=== PATIENT | female | born 1980 | race Caucasian/White ===

== ENCOUNTER 2022-08-26 07:40 | Day surgery (SDC) | payer OTHER ==
[2022-08-23 14:11] LABS: Absolute Lymphocytes (CBC) 2.8 K/uL (0.7-4.9); Hematocrit 40.6 % (36.0-45.0); MCV 98.6 fL (80-100); MPV 7.9 fL (7.6-11.3); RBC Red Blood Cell Count 4.12 M/uL (3.86-4.86)
[2022-08-23 14:19] LABS: Potassium 4.1 mEq/L (3.5-5.1)
[2022-08-26] MEDS ORDERED: CEFAZOLIN SODIUM 2 GM/VIAL ONE (08:13)
[2022-08-26] MEDS ORDERED: Ringers Lactate 1,000 ML IV ONE (08:14)
[2022-08-26] MEDS ORDERED: BUPIVACAINE 0.25% PF 30 ML VIAL ONE (09:57)
[2022-08-26] MEDS ORDERED: METHYLENE BLUE 0.5% 10 ML AMP ONE ×2 (09:57→14:21)
--- NOTE | 2022-08-26 12:44 | EKG ---
Test Date: 2022-08-23 Test Time: 13:50:02 Facilities Manager: ALEX MEASUREMENT RESULTS: Intervals: Rate: 65 PA: 156 QRSD: 78 QT: 410 QTc: 426 [place]: P: 64 PA: 156 QRS: 58 T: 66 INTERPRETIVE STATEMENTS: Normal sinus rhythm Septal infarct, age undetermined Abnormal ECG No previous ECG available for comparison Electronically Signed On 08-26-22 12:37:47 CDT by Anish Valdes
--- NOTE | 2022-08-26 13:12 | RAD REPORT ---
EXAM DESCRIPTION: NM - Lymphoscintigraphy - 08/26/2022 12:57 pm CLINICAL HISTORY: C50.911 COMPARISON: No comparisons TECHNIQUE: Two intradermal injections totaling 261 uCi of Lymphoseek were administered in the right periareolar region. Plantar AP imaging was performed approximately 30 minutes following tracer admini stration. FINDINGS: Pronounced uptake noted at the sites of injection. A single focus of moderate uptake along the right axillary tail, suggesting a single avid lymph nodes. No evidence of christie uptake along the internal thoracic chain. IMPRESSION: Rex christie uptake on the right as above.
[2022-08-26] MEDS ORDERED: BUPIVACAINE 0.25% PF 10 ML VIAL ONE (14:21)
[2022-08-26] MEDS ORDERED: SUCCINYLCHOLINE 20 MG/ML (10 ML) IV ONE (15:13)
[2022-08-26] MEDS ORDERED: LIDOCAINE 2% MPF 5 ML VIAL ONE (15:16)
[2022-08-26] MEDS ORDERED: ROCURONIUM 50 MG/5 ML VIAL IV ONE (15:16)
[2022-08-26] MEDS ORDERED: FENTANYL CITR 100 MCG/2 ML ONE ×2 (15:16→16:50)
[2022-08-26] MEDS ORDERED: ONDANSETRON 4 MG/2 ML VIAL ONE (15:16)
[2022-08-26] MEDS ORDERED: MIDAZOLAM HCL 2 MG/2 ML INJ ONE (15:16)
[2022-08-26] MEDS ORDERED: propofoL 200 MG/20 ML VIAL IV ONE (15:16)
[2022-08-26] MEDS ORDERED: EPHEDRINE SULF 50 MG/ML VIAL ONE (16:06)
--- NOTE | 2022-08-26 17:02 | P.OP ---
Preoperative diagnosis: RIGHT Breast Invasive Ductal Carcinoma Postoperative diagnosis: RIGHT Breast Invasive Ductal Carcinoma Primary procedure: RIGHT Breast Needle Localized Lumpectomy Secondary procedure: [place] Lymph Node Biopsy Anesthesia: GETA + Local Estimated blood loss: <10cc Specimen: RIGHT Breast with lump, RIGHT Axillary [place] Lymph node Findings: [place] LN negative Complications: None Transferred to: Recovery Room Condition: Good
--- NOTE | 2022-08-26 17:15 | RAD REPORT ---
EXAM DESCRIPTION: US - Surgical Specimen - 08/26/2022 4:30 pm CLINICAL HISTORY: Surgical specimen from breast lumpectomy. COMPARISON: Images from ultrasound-guided wire localization procedure of the same date. TECHNIQUE: Sonographic evaluation of the surgical specimen obtained from right breast lumpectomy of today. FINDINGS: A hypoechoic mass with angular margins is noted within the surgical specimen. Its dimensio ns are measured at 1.0 x 0.9 x 0.7 centimeter. Echogenic linear wire traverses the deeper aspect of t he mass. Punctate echogenic foci towards the deeper aspect probably relate to tiny gas locules. Rever beration artifact present along the right aspect of the mass on the longitudinal plane, could be mal factual or related to presence of a thin safety margin. Abundance of the adjacent fat in all other pl anes. IMPRESSION: Sonographic evaluation of right breast lumpectomy surgical specimen as above. The findings were communicated to PACU nurse on 08/26/2022 at 16:40 hours.
[2022-08-26] MEDS: HYDROMORPHONE HCL 1 MG/ML INJ ONE ×2 (17:25→17:36)
[2022-08-26] MEDS ORDERED: HYDROMORPHONE HCL 1 MG/ML INJ ONE (17:50)
[2022-08-26] MEDS ORDERED: HYDROCODONE/APAP 5/325 MG TAB ONE (18:10)
[2022-08-26 18:11] VITALS: BP 115/77; TEMP 97.4; O2SAT 94
--- NOTE | 2022-08-26 22:52 | OP ---
Date of Procedure: 08/26/2022 Surgeon: Mauricio Cruz MD, Preoperative Diagnosis: Right breast invasive ductal carcinoma. Postoperative Diagnosis: Right breast invasive ductal carcinoma. Procedures Performed: 1.Right breast needle localized lumpectomy. 2.[place] lymph node biopsy. Anesthesia: General endotracheal plus local with 0.25% Marcaine. Estimated Blood Loss: Less than 10 cc. Specimens: 1.Right breast lump/mass. 2.Right axillary sentinel lymph node. Findings: [place] lymph node was negative on pathologic examination. Complications: None. The patient was transferred to recovery room in good condition. Procedure In Detail: After informed consent was obtained, the patient came earlier in the day and everett d lymphoscintigraphy performed by the Nuclear Medicine Department. Prior to that, she had a wire/nee dle localization performed with our radiologist under ultrasound guidance into her right breast mass, which is approximately 5 cm from the nipple areolar complex at the 5 o'clock position. The patient was then brought to the operating room prepped and draped in the usual sterile fashion. After adequa te anesthesia was achieved, I injected methylene blue in a periareolar fashion and the patient's colleen st was massaged for approximately 5 minutes during this process. We then used the needle as a guide point for entry. I made a linear incision at the infraareolar position down through subcutaneous tis sues, after appropriately anesthetizing the skin with 0.25% Marcaine. I dissected down circumferenti ally following the course of the wire down in a conical fashion to include the breast lump, which was at the 5 o'clock position and near the prepectoral fascia. I then removed the area including the pr epectoral fascia including the entire area of the wire with a rim of normal tissue as well. I then p laced orientation stitches on this specimen from medial and superior aspects and marked the deep juan ramon in with ink. I then sent this off for radiologic examination to ensure the entire specimen was withi n the examined portion. This was verified by Radiology that the specimen contained the mass in quest ion. I then irrigated the chest wall and lumpectomy location copiously. Hemostasis was achieved wit h electrocautery. The area was irrigated once again, dried and then deep dermal plane was closed usi ng interrupted 3-0 Vicryl suture and the skin was closed with a 4-0 Monocryl in a running fashion and Dermabond was placed over top. I then turned my attention to the axillary area. The axilla was exa mined at this point, using the gamma probe including the skin preoperatively. These markings were in the documentation attached for the skin level gamma counts. At this point I found an area of the hi ghest reading, which was approximately 1200 at the skin level. I then made a linear incision overlyi ng the axillary region down through subcutaneous tissues. I dissected down to open the clavipectoral fascia and I dissected down bluntly to expose a sentinel lymph node using the gamma probe guidance. A blue lymph node was appreciated at this point, which counts were approximately 3300. See document ation for full details. I then dissected circumferentially around this. I clipped the proximal and distal aspects of this lymph node with a clip level vial grinder. I then removed this using scissors and electr ocautery combination. I then sent the sentinel lymph node and examined it on the gamma probe. At th is point, the counts were approximately 3300. I then sent this off for pathologic examination. I th en examined the remaining axilla with the gamma probe and found the counts to be below 10% of this se ntinel lymph node. I then irrigated the axilla copiously and awaited the pathologic examination, whi ch was completed at this point and found that the sentinel lymph node was negative for cancer and as such an axillary dissection was not necessary. I then irrigated the area once again, suctioned out u ntil completely dry. I closed the clavipectoral fascia using interrupted 3-0 Vicryl suture. The kanika p dermal plane was then closed with an additional 3-0 Vicryl suture and the skin was closed with a 4- 0 Monocryl in a running fashion. Dermabond placed over top. The patient tolerated the procedure without evidence of any complication and transferred to PACU in good condition. All counts were correct at the end of the case. HEIDE/THEE Voice ID: [id number] Report ID: [id number]
--- NOTE | 2022-08-27 21:40 | RAD REPORT ---
EXAM DESCRIPTION: US - Brst,Preop NL Wire Init w/Guid - 08/26/2022 9:29 am CLINICAL HISTORY: Right breast mass FINDINGS: The skin, subcutaneous tissues and breast tissue were anesthetized with lidocaine. Under sonographic guidance a Kopan's hook wire was placed into the right breast mass . The patient then left for the surgical department IMPRESSION: Ultrasound-guided needle wire localization of a right breast mass.
== END 2022-08-26 18:30 | disposition home or self-care (01) ==
LOC: OR 07:40
PROVIDERS: ATTEND Surgery
PROC: 0HBT0ZZ Excision of Right Breast, Open Approach (ICD-10-PCS; principal; 2022-08-26 11:00)
PROC: 07B50ZX Excision of Right Axillary Lymphatic, Open Approach, Diagnostic (ICD-10-PCS; 2022-08-26 11:00)
DX: C50.911 Malignant neoplasm of unspecified site of right female breast (principal); C77.3 Secondary and unspecified malignant neoplasm of axilla and upper limb lymph nodes; J45.909 Unspecified asthma, uncomplicated; F17.210 Nicotine dependence, cigarettes, uncomplicated; F32.A Depression, unspecified
CPT/HCPCS: 19301; 38500; 93005; 85025; 80048; 36415; 88307; 88333; 76098; 19285; 78195; J2704; J2001; J2250; J3010 ×2; J1170 ×2; J2405; J7120; A9520

== ENCOUNTER 2022-10-31 21:31 | Emergency (ER) | payer OTHER ==
--- OUTSIDE RECORDS SUMMARY | 2022-10-31 21:35 | XMS REPORT | Continuity of Care Document ---
:1980 Author Organization [facility] t Address [address] [place] [address] [address] [place] [address] Care Team Providers Name Role Phone RAEANN SZYMANSKI Attending Clinician Unavailable GEOVANNA Attending Clinician Unavailable DR PRACHI MONTAÑO Attending Clinician Unavailable GEOVANNA Admitting Clinician Unavailable DR PRACHI MONTAÑO Admitting Clinician Unavailable Payers Payer Name Policy Type Policy Number Effective Date Expiration Date S aubrey [place] - [id number] [place] FROM [facility]: [place] [id number] 2021 2022 ADVANTAGE (HMO) 00:00:00 00:00:00 [id number] 00:00:00 Problems This patient has no known problems. Allergies, Adverse Reactions, Alerts Allergy Allergy Status Severity Reaction(s) Onset Inactive Treating Comm ents Source Name Type Date Date Clinician SULFA Allergy Active [place] (SULFONA to da MIDE substanc [facility] ANTIBIOT [facility]) [facility] Social History Smoking Status Start Date Stop Date Source Light Tobacco Smoker [facility] Current every day smoker [facility] (LUF/GIANNA/SA) Medications Ordered Filled Start Stop Current Ordering Indication Dosage Frequency Signature Comments Components Source Medication Medication Date Date Medication? Clinician (SIG) Name Name albuterol albuterol No albuterol [place] sulfate HFA sulfate HFA sulfate da 90 90 HFA 90 [facility] mcg/actuati mcg/actuati mcg/actuat al on aerosol on aerosol ion [facility]a [facility] inhaler inhaler aerosol Outrea c INHALE 1-2 INHALE 1-2 inhaler h PUFFS BY PUFFS BY INHALE 1-2 P rogram MOUTH EVERY MOUTH EVERY PUFFS BY 4-6 HOURS 4-6 HOURS MOUTH NEEDED NEEDED EVERY 4-6 WHEEZING/ WHEEZING/ HOURS SHORTNESS SHORTNESS NEEDED OF BREATH. OF BREATH. WHEEZING/ SHORTNESS OF BREATH. cholestyram cholestyram No cholestyra [place] ine (with ine (with mine (with da sugar) 4 sugar) 4 sugar) 4 Epi scop gram oral gram oral gram oral al powder Take powder Take powder Health 1 scoop 1 scoop Take 1 Outreac twice a day twice a day scoop h by oral by oral twice a Progra m route for route for day by 30 days. 30 days. oral route for 30 days. fluoxetine fluoxetine No fluoxetine [facility] 40 mg 40 mg 40 mg da capsule capsule capsule [facility] p TAKE 1 TAKE 1 TAKE 1 al CAPSULE BY CAPSULE BY CAPSULE BY Health MOUTH EVERY MOUTH EVERY MOUTH Outreac DAY DAY EVERY DAY h Program albuterol albuterol No albuterol [place] sulfate HFA sulfate HFA sulfate da 90 90 HFA 90 [facility] mcg/actuati mcg/actuati mcg/actuat al on aerosol on aerosol ion [facility] inhaler inhaler aerosol Outrea c INHALE 1-2 INHALE 1-2 inhaler h PUFFS BY PUFFS BY INHALE 1-2 P rogram MOUTH EVERY MOUTH EVERY PUFFS BY 4-6 HOURS 4-6 HOURS MOUTH NEEDED NEEDED EVERY 4-6 WHEEZING/ WHEEZING/ HOURS SHORTNESS SHORTNESS NEEDED OF BREATH. OF BREATH. WHEEZING/ SHORTNESS OF BREATH. cholestyram cholestyram No cholestyra [place] ine (with ine (with mine (with da sugar) 4 sugar) 4 sugar) 4 Epi scop gram oral gram oral gram oral al powder MIX powder MIX powder MIX Health 1 SCOOP 1 SCOOP 1 SCOOP Outrea c INTO 2-3 INTO 2-3 INTO 2-3 h [facility]UNCES [facility] OUNCES [facility] OUNCES OF Program JUICE AND JUICE AND JUICE AND DRINK BY DRINK BY DRINK BY MOUTH 1-2 MOUTH 1-2 MOUTH 1-2 TIMES A DAY TIMES A DAY TIMES A NEEDED NEEDED DAY FOR FOR NEEDED FOR DIARRHEA DIARRHEA DIARRHEA fluoxetine fluoxetine No 3capsul Q1D fluoxetine [place] 20 mg 20 mg e(s) 20 mg da capsule capsule capsule [facility] p Take 3 Take 3 Take 3 al capsules capsules capsules [facility] every day every day every day Outreac by oral by oral by oral h route with route with route with Program meals for meals for meals for 30 days. 30 days. 30 days. fluoxetine fluoxetine No fluoxetine [place] 40 mg 40 mg 40 mg da capsule capsule capsule [facility] p TAKE 1 TAKE 1 TAKE 1 al CAPSULE BY CAPSULE BY CAPSULE BY Health MOUTH EVERY MOUTH EVERY MOUTH Outreac DAY DAY EVERY DAY h Program montelukast montelukast No montelukas [place] 10 mg 10 mg t 10 mg da tablet tablet tablet [facility] albuterol albuterol No albuterol [place] sulfate HFA sulfate HFA sulfate da 90 90 HFA 90 [facility] mcg/actuati mcg/actuati mcg/actuat al on aerosol on aerosol ion [facility]a [facility] inhaler inhaler aerosol Outrea c INHALE 1-2 INHALE 1-2 inhaler h PUFFS BY PUFFS BY INHALE 1-2 P rogram MOUTH EVERY MOUTH EVERY PUFFS BY 4-6 HOURS 4-6 HOURS MOUTH NEEDED NEEDED EVERY 4-6 WHEEZING/ WHEEZING/ HOURS SHORTNESS SHORTNESS NEEDED OF BREATH. OF BREATH. WHEEZING/ SHORTNESS OF BREATH. cholestyram cholestyram No cholestyra [place] ine (with ine (with mine (with da sugar) 4 sugar) 4 sugar) 4 Epi scop gram oral gram oral gram oral al powder MIX powder MIX powder MIX Health 1 SCOOP 1 SCOOP 1 SCOOP Outrea c INTO 2-3 INTO 2-3 INTO 2-3 h OUNCES OF OUNCES OF OUNCES OF Program JUICE AND JUICE AND JUICE AND DRINK BY DRINK BY DRINK BY MOUTH 1-2 MOUTH 1-2 MOUTH 1-2 TIMES A DAY TIMES A DAY TIMES A NEEDED NEEDED DAY FOR FOR NEEDED FOR DIARRHEA DIARRHEA DIARRHEA fluoxetine fluoxetine No 3capsul Q1D fluoxetine [facility] 20 mg 20 mg e(s) 20 mg da capsule capsule capsule [facility] p Take 3 Take 3 Take 3 al capsules capsules capsules [facility] every day every day every day Outreac by oral by oral by oral h route with route with route with Program meals for meals for meals for 30 days. 30 days. 30 days. fluoxetine fluoxetine No fluoxetine [facility] 40 mg 40 mg 40 mg da capsule capsule capsule [facility] p TAKE 1 TAKE 1 TAKE 1 al CAPSULE BY CAPSULE BY CAPSULE BY Health MOUTH EVERY MOUTH EVERY MOUTH Outreac DAY DAY EVERY DAY h Program montelukast montelukast No montelukas [place] 10 mg 10 mg t 10 mg da tablet tablet tablet [facility] albuterol albuterol No albuterol [place] sulfate HFA sulfate HFA sulfate da 90 90 HFA 90 [facility] mcg/actuati mcg/actuati mcg/actuat al on aerosol on aerosol ion [facility] inhaler inhaler aerosol Outrea c INHALE 1-2 INHALE 1-2 inhaler h PUFFS BY PUFFS BY INHALE 1-2 P rogram MOUTH EVERY MOUTH EVERY PUFFS BY 4-6 HOURS 4-6 HOURS MOUTH NEEDED NEEDED EVERY 4-6 WHEEZING/ WHEEZING/ HOURS SHORTNESS SHORTNESS NEEDED OF BREATH. OF BREATH. WHEEZING/ SHORTNESS OF BREATH. cholestyram cholestyram No 1scoop( BID cholestyra [place] ine (with ine (with s) mine (with da sugar) 4 sugar) 4 sugar) 4 Epi scop gram oral gram oral gram oral al powder Take powder Take powder Health 1 scoop 1 scoop Take 1 Outreac twice a day twice a day scoop h by oral by oral twice a Progra m route for route for day by 30 days. 30 days. oral route for 30 days. albuterol albuterol No albuterol [place] sulfate HFA sulfate HFA sulfate da 90 90 HFA 90 [facility] mcg/actuati mcg/actuati mcg/actuat al on aerosol on aerosol ion [facility] inhaler inhaler aerosol Outrea c INHALE 1-2 INHALE 1-2 inhaler h PUFFS BY PUFFS BY INHALE 1-2 P rogram MOUTH EVERY MOUTH EVERY PUFFS BY 4-6 HOURS 4-6 HOURS MOUTH NEEDED NEEDED EVERY 4-6 WHEEZING/ WHEEZING/ HOURS SHORTNESS SHORTNESS NEEDED OF BREATH. OF BREATH. WHEEZING/ SHORTNESS OF BREATH. fluoxetine fluoxetine No 1capsul Q1D fluoxetine [place] 40 mg 40 mg e(s) 40 mg da capsule capsule capsule [facility] p Take 1 Take 1 Take 1 al capsule capsule capsule Health every day every day every day Outreac by oral by oral by oral h route. route. route. Program Cholestyram Cholestyram No Cholestyra [place] ine Light 4 ine Light 4 mine Light da gram oral gram oral 4 gram Epi scop powder MIX powder MIX oral al ONE (1) ONE (1) powder MIX [facility]a [facility] SCOOP (4 SCOOP (4 ONE (1) Outr eac GRAMS) IN GRAMS) IN SCOOP (4 h 2-3 OUNCES 2-3 OUNCES GRAMS) IN Program OF JUICE OF JUICE 2-3 OUNCES AND DRINK 1 AND DRINK 1 OF JUICE OR 2 TIMES OR 2 TIMES AND DRINK A DAY FOR A DAY FOR 1 OR 2 DIARRHEA. DIARRHEA. TIMES A DAY FOR DIARRHEA. fluoxetine fluoxetine No fluoxetine [place] 40 mg 40 mg 40 mg da capsule capsule capsule [facility] p TAKE ONE TAKE ONE TAKE ONE al (1) (1) (1) Health CAPSULE(S) CAPSULE(S) CAPSULE(S) Outreac BY MOUTH BY MOUTH BY MOUTH h EVERY DAY. EVERY DAY. EVERY DAY. Program montelukast montelukast No montelukas [place] 10 mg 10 mg t 10 mg da tablet tablet tablet [facility] albuterol albuterol No albuterol [place] sulfate HFA sulfate HFA sulfate da 90 90 HFA 90 [facility] mcg/actuati mcg/actuati mcg/actuat al on aerosol on aerosol ion Hea lt inhaler inhaler aerosol Outrea c INHALE 1-2 INHALE 1-2 inhaler h PUFFS BY PUFFS BY INHALE 1-2 P rogram MOUTH EVERY MOUTH EVERY PUFFS BY 4-6 HOURS 4-6 HOURS MOUTH NEEDED NEEDED EVERY 4-6 WHEEZING/ WHEEZING/ HOURS SHORTNESS SHORTNESS NEEDED OF BREATH. OF BREATH. WHEEZING/ SHORTNESS OF BREATH. Cholestyram Cholestyram No Cholestyra [place] ine Light 4 ine Light 4 mine Light da gram oral gram oral 4 gram Epi scop powder MIX powder MIX oral al ONE (1) ONE (1) powder MIX [facility]a [facility]th SCOOP (4 SCOOP (4 ONE (1) Outr eac GRAMS) IN GRAMS) IN SCOOP (4 h 2-3 OUNCES 2-3 OUNCES GRAMS) IN Program OF JUICE OF JUICE 2-3 OUNCES AND DRINK 1 AND DRINK 1 OF JUICE OR 2 TIMES OR 2 TIMES AND DRINK A DAY FOR A DAY FOR 1 OR 2 DIARRHEA. DIARRHEA. TIMES A DAY FOR DIARRHEA. fluoxetine fluoxetine No fluoxetine [place] 40 mg 40 mg 40 mg da capsule capsule capsule [facility] p TAKE ONE TAKE ONE TAKE ONE al (1) (1) (1) Health CAPSULE(S) CAPSULE(S) CAPSULE(S) Outreac BY MOUTH BY MOUTH BY MOUTH h EVERY DAY. EVERY DAY. EVERY DAY. Program montelukast montelukast No montelukas [place] 10 mg 10 mg t 10 mg da tablet tablet tablet [facility] albuterol albuterol No albuterol [place] sulfate HFA sulfate HFA sulfate da 90 90 HFA 90 [facility] mcg/actuati mcg/actuati mcg/actuat al on aerosol on aerosol ion [facility] inhaler inhaler aerosol Outrea c INHALE 1-2 INHALE 1-2 inhaler h PUFFS BY PUFFS BY INHALE 1-2 P rogram MOUTH EVERY MOUTH EVERY PUFFS BY 4-6 HOURS 4-6 HOURS MOUTH NEEDED NEEDED EVERY 4-6 WHEEZING/ WHEEZING/ HOURS SHORTNESS SHORTNESS NEEDED OF BREATH. OF BREATH. WHEEZING/ SHORTNESS OF BREATH. Cholestyram Cholestyram No Cholestyra [place] ine Light 4 ine Light 4 mine Light da gram oral gram oral 4 gram Epi scop powder MIX powder MIX oral al ONE (1) ONE (1) powder MIX [facility] SCOOP (4 SCOOP (4 ONE (1) Outr eac GRAMS) IN GRAMS) IN SCOOP (4 h 2-3 OUNCES 2-3 OUNCES GRAMS) IN Program OF JUICE OF JUICE 2-3 OUNCES AND DRINK 1 AND DRINK 1 OF JUICE OR 2 TIMES OR 2 TIMES AND DRINK A DAY FOR A DAY FOR 1 OR 2 DIARRHEA. DIARRHEA. TIMES A DAY FOR DIARRHEA. cholestyram cholestyram No cholestyra [place] ine-asparta ine-asparta mine-aspar da me 4 gram me 4 gram tame 4 Epi scop oral powder oral powder gram oral al for susp in for susp in powder for Health a packet a packet susp in a Ou treac MIX AND MIX AND packet MIX h DRINK BY DRINK BY AND DRINK Pr ogram MOUTH 4 MOUTH 4 BY MOUTH 4 GRAMS IN GRAMS IN GRAMS IN 2-3 OUNCES 2-3 OUNCES 2-3 OUNCES OF JUICE OF JUICE OF JUICE 1-2 TIMES A 1-2 TIMES A 1-2 TIMES DAY FOR DAY FOR A DAY FOR DIARRHEA. DIARRHEA. DIARRHEA. fluoxetine fluoxetine No fluoxetine [place] 40 mg 40 mg 40 mg da capsule capsule capsule [facility] p TAKE ONE TAKE ONE TAKE ONE al (1) (1) (1) Health CAPSULE(S) CAPSULE(S) CAPSULE(S) Outreac BY MOUTH BY MOUTH BY MOUTH h EVERY DAY. EVERY DAY. EVERY DAY. Program montelukast montelukast No montelukas [place] 10 mg 10 mg t 10 mg da tablet tablet tablet [facility] albuterol albuterol No albuterol [place] sulfate HFA sulfate HFA sulfate da 90 90 HFA 90 [facility] mcg/actuati mcg/actuati mcg/actuat al on aerosol on aerosol ion [facility]a [facility] inhaler inhaler aerosol Outrea c INHALE ONE INHALE ONE inhaler h (1) OR TWO (1) OR TWO INHALE ONE Program (2) PUFF(S) (2) PUFF(S) (1) OR TWO BY MOUTH BY MOUTH (2) EVERY 4 TO EVERY 4 TO PUFF(S) BY 6 HOURS 6 HOURS MOUTH NEEDED FOR NEEDED FOR EVERY 4 TO WHEEZING WHEEZING 6 HOURS AND AND NEEDED FOR SHORTNESS SHORTNESS WHEEZING OF BREATH. OF BREATH. AND SHORTNESS OF BREATH. Cholestyram Cholestyram No Cholestyra [place] ine Light 4 ine Light 4 mine Light da gram oral gram oral 4 gram Epi scop powder MIX powder MIX oral al ONE (1) ONE (1) powder MIX [facility] SCOOP (4 SCOOP (4 ONE (1) Outr eac GRAMS) IN GRAMS) IN SCOOP (4 h 2-3 OUNCES 2-3 OUNCES GRAMS) IN Program OF JUICE OF JUICE 2-3 OUNCES AND DRINK 1 AND DRINK 1 OF JUICE OR 2 TIMES OR 2 TIMES AND DRINK A DAY FOR A DAY FOR 1 OR 2 DIARRHEA. DIARRHEA. TIMES A DAY FOR DIARRHEA. cholestyram cholestyram No cholestyra [place] ine-asparta ine-asparta mine-aspar da me 4 gram me 4 gram tame 4 Epi scop oral powder oral powder gram oral al for susp in for susp in powder for Health a packet a packet susp in a Ou treac MIX AND MIX AND packet MIX h DRINK BY DRINK BY AND DRINK Pr ogram MOUTH ONE MOUTH ONE BY MOUTH (1) PACKET (1) PACKET ONE (1) (4 GRAMS) (4 GRAMS) PACKET (4 IN 2-3 IN 2-3 GRAMS) IN OUNCES OF OUNCES OF 2-3 OUNCES JUICE AND JUICE AND OF JUICE DRINK 1 OR DRINK 1 OR AND DRINK 2 TIMES A 2 TIMES A 1 OR 2 DAY FOR DAY FOR TIMES A DIARRHEA. DIARRHEA. DAY FOR DIARRHEA. fluoxetine fluoxetine No 3capsul Q1D fluoxetine [facility] 20 mg 20 mg e(s) 20 mg da capsule capsule capsule [facility] p Take 3 Take 3 Take 3 al capsules capsules capsules [facility] every day every day every day Outreac by oral by oral by oral h route with route with route with Program meals for meals for meals for 30 days. 30 days. 30 days. fluoxetine fluoxetine No fluoxetine [place] 40 mg 40 mg 40 mg da capsule capsule capsule [facility] p TAKE ONE TAKE ONE TAKE ONE al (1) (1) (1) Health CAPSULE(S) CAPSULE(S) CAPSULE(S) Outreac BY MOUTH BY MOUTH BY MOUTH h EVERY DAY. EVERY DAY. EVERY DAY. Program montelukast montelukast No montelukas [place] 10 mg 10 mg t 10 mg da tablet tablet tablet [facility] albuterol albuterol No albuterol [place] sulfate HFA sulfate HFA sulfate da 90 90 HFA 90 [facility] mcg/actuati mcg/actuati mcg/actuat al on aerosol on aerosol ion [facility]a [facility] inhaler inhaler aerosol Outrea c INHALE ONE INHALE ONE inhaler h (1) OR TWO (1) OR TWO INHALE ONE Program (2) PUFF(S) (2) PUFF(S) (1) OR TWO BY MOUTH BY MOUTH (2) EVERY 4 TO EVERY 4 TO PUFF(S) BY 6 HOURS 6 HOURS MOUTH NEEDED FOR NEEDED FOR EVERY 4 TO WHEEZING WHEEZING 6 HOURS AND AND NEEDED FOR SHORTNESS SHORTNESS WHEEZING OF BREATH. OF BREATH. AND SHORTNESS OF BREATH. Cholestyram Cholestyram No Cholestyra [place] ine Light 4 ine Light 4 mine Light da gram oral gram oral 4 gram Epi scop powder MIX powder MIX oral al ONE (1) ONE (1) powder MIX [facility]a [facility] SCOOP (4 SCOOP (4 ONE (1) Outr eac GRAMS) IN GRAMS) IN SCOOP (4 h 2-3 OUNCES 2-3 OUNCES GRAMS) IN Program OF JUICE OF JUICE 2-3 OUNCES AND DRINK 1 AND DRINK 1 OF JUICE OR 2 TIMES OR 2 TIMES AND DRINK A DAY FOR A DAY FOR 1 OR 2 DIARRHEA. DIARRHEA. TIMES A DAY FOR DIARRHEA. cholestyram cholestyram No cholestyra [place] ine-asparta ine-asparta mine-aspar da me 4 gram me 4 gram tame 4 Epi scop oral powder oral powder gram oral al for susp in for susp in powder for Health a packet a packet susp in a Ou treac MIX AND MIX AND packet MIX h DRINK BY DRINK BY AND DRINK Pr ogram MOUTH ONE MOUTH ONE BY MOUTH (1) PACKET (1) PACKET ONE (1) (4 GRAMS) (4 GRAMS) PACKET (4 IN 2-3 IN 2-3 GRAMS) IN OUNCES OF OUNCES OF 2-3 OUNCES JUICE AND JUICE AND OF JUICE DRINK 1 OR DRINK 1 OR AND DRINK 2 TIMES A 2 TIMES A 1 OR 2 DAY FOR DAY FOR TIMES A DIARRHEA. DIARRHEA. DAY FOR DIARRHEA. fluoxetine fluoxetine No fluoxetine [facility] 20 mg 20 mg 20 mg da capsule capsule capsule [facility] p TAKE 3 TAKE 3 TAKE 3 al CAPSULES CAPSULES CAPSULES [facility]a [facility]th EVERY DAY EVERY DAY EVERY DAY Outreac BY ORAL BY ORAL BY ORAL h ROUTE WITH ROUTE WITH ROUTE WITH Program MEALS FOR MEALS FOR MEALS FOR 30 DAYS. 30 DAYS. 30 DAYS. fluoxetine fluoxetine No fluoxetine [place] 40 mg 40 mg 40 mg da capsule capsule capsule [facility] p TAKE ONE TAKE ONE TAKE ONE al (1) (1) (1) Health CAPSULE(S) CAPSULE(S) CAPSULE(S) Outreac BY MOUTH BY MOUTH BY MOUTH h EVERY DAY. EVERY DAY. EVERY DAY. Program hydrocodone hydrocodone No hydrocodon [facility] 5 5 e 5 da mg-acetamin mg-acetamin mg-acetami [facility] ophen 325 ophen 325 nophen 325 al mg tablet mg tablet mg tablet Health TAKE ONE TAKE ONE TAKE ONE Out reac (1) (1) (1) h TABLET(S) TABLET(S) TABLET(S) Program BY MOUTH BY MOUTH BY MOUTH EVERY EIGHT EVERY EIGHT EVERY HOURS HOURS EIGHT NEEDED. NEEDED. HOURS NEEDED. montelukast montelukast No montelukas [facility] 10 mg 10 mg t 10 mg da tablet tablet tablet [facility] albuterol albuterol No albuterol [place] sulfate HFA sulfate HFA sulfate da 90 90 HFA 90 [facility] mcg/actuati mcg/actuati mcg/actuat al on aerosol on aerosol ion [facility]a [facility] inhaler inhaler aerosol Outrea c INHALE 1-2 INHALE 1-2 inhaler h PUFFS BY PUFFS BY INHALE 1-2 P rogram MOUTH EVERY MOUTH EVERY PUFFS BY 4-6 HOURS 4-6 HOURS MOUTH NEEDED NEEDED EVERY 4-6 WHEEZING/ WHEEZING/ HOURS SHORTNESS SHORTNESS NEEDED OF BREATH. OF BREATH. WHEEZING/ SHORTNESS OF BREATH. cholestyram cholestyram No 1scoop( BID cholestyra [place] ine (with ine (with s) mine (with da sugar) 4 sugar) 4 sugar) 4 Epi scop gram oral gram oral gram oral al powder Take powder Take powder Health 1 scoop 1 scoop Take 1 Outreac twice a day twice a day scoop h by oral by oral twice a Progra m route for route for day by 30 days. 30 days. oral route for 30 days. clonidine clonidine No 1 BID clonidine [facility] HCl 0.1 mg HCl 0.1 mg HCl 0.1 mg da tablet Take tablet Take tablet [facility] 1 tablet 1 tablet Take 1 al twice a day twice a day tablet Health by oral by oral twice a Outrea c route with route with day by h meals for meals for oral route Program 30 days. 30 days. with meals for 30 days. fluoxetine fluoxetine No fluoxetine [place] 40 mg 40 mg 40 mg da capsule capsule capsule [facility] p TAKE 1 TAKE 1 TAKE 1 al CAPSULE BY CAPSULE BY CAPSULE BY Health MOUTH EVERY MOUTH EVERY MOUTH Outreac DAY DAY EVERY DAY h Program albuterol albuterol No albuterol [place] sulfate HFA sulfate HFA sulfate da 90 90 HFA 90 [facility] mcg/actuati mcg/actuati mcg/actuat al on aerosol on aerosol ion [facility]a [facility] inhaler inhaler aerosol Outrea c INHALE 1-2 INHALE 1-2 inhaler h PUFFS BY PUFFS BY INHALE 1-2 P rogram MOUTH EVERY MOUTH EVERY PUFFS BY 4-6 HOURS 4-6 HOURS MOUTH NEEDED NEEDED EVERY 4-6 WHEEZING/ WHEEZING/ HOURS SHORTNESS SHORTNESS NEEDED OF BREATH. OF BREATH. WHEEZING/ SHORTNESS OF BREATH. cholestyram cholestyram No cholestyra [place] ine (with ine (with mine (with da sugar) 4 sugar) 4 sugar) 4 Epi scop gram oral gram oral gram oral al powder Take powder Take powder Health 1 scoop 1 scoop Take 1 Outreac twice a day twice a day scoop h by oral by oral twice a Progra m route for route for day by 30 days. 30 days. oral route for 30 days. fluoxetine fluoxetine No fluoxetine [facility] 40 mg 40 mg 40 mg da capsule capsule capsule [facility] p TAKE 1 TAKE 1 TAKE 1 al CAPSULE BY CAPSULE BY CAPSULE BY Health MOUTH EVERY MOUTH EVERY MOUTH Outreac DAY DAY EVERY DAY h Program Immunizations Ordered Immunization Filled Immunization Date Status Commen ts Source Name Name influenza, influenza, 2022-02-18 Completed [place] injectable, [facility], [facility]:03:[facility] quad[facility], quadrivalent, [facility] preservative free preservative free influenza, influenza, 2022-02-18 Completed [place] injectable, injectable, 11:03:07 [facility] quadrivalent, quadrivalent, [facility] preservative free preservative free influenza, influenza, 2022-02-18 Completed [place] injectable, injectable, 11:03:07 [facility] quadrivalent, quadrivalent, [facility]reach [facility] preservative free preservative free influenza, influenza, 2022-02-18 Completed [place] injectable, injectable, 11:03:07 [facility] quadrivalent, quadrivalent, Outreach Program preservative free preservative free influenza, influenza, 2022-02-18 Completed [place] injectable, injectable, 11:03:07 [facility] quadrivalent, quadrivalent, Outreach Program preservative free preservative free influenza, influenza, 2022-02-18 Completed [place] injectable, injectable, 11:03:07 [facility] quadrivalent, quadrivalent, Outreach Program preservative free preservative free influenza, influenza, 2022-02-18 Completed [place] injectable, injectable, 11:03:07 [facility] quadrivalent, quadrivalent, Outreach Program preservative free preservative free influenza, influenza, 2022-02-18 Completed [place] injectable, injectable, 11:03:07 [facility] quadrivalent, quadrivalent, Outreach Program preservative free preservative free influenza, influenza, 2022-02-18 Completed [place] injectable, injectable, 11:03:07 [facility] quadrivalent, quadrivalent, Outreach Program preservative free preservative free influenza, influenza, 2022-02-18 Completed [place] injectable, injectable, 11:03:07 [facility] quadrivalent, quadrivalent, Outreach Program preservative free preservative free influenza, influenza, 2022-02-18 Completed [place] injectable, injectable, 11:03:07 [facility] quadrivalent, quadrivalent, Outreach Program preservative free preservative free COVID-19 vaccine, COVID-19 vaccine, 2021-03-29 Completed [place] vector-nr, rS-Ad26, vector-nr, rS-Ad26, 00:00:00 [facility] PF, 0.5 mL (Jordin) PF, 0.5 mL Outr each Program (Jordin) COVID-19 vaccine, COVID-19 vaccine, 2021-03-29 Completed [place] vector-nr, rS-Ad26, vector-nr, rS-Ad26, 00:00:00 [facility] PF, 0.5 mL (Jordin) PF, 0.5 mL Outr each Program (ActX) COVID-19 vaccine, COVID-19 vaccine, 2021-03-29 Completed [place] vector-nr, rS-Ad26, vector-nr, rS-Ad26, 00:00:00 [facility] PF, 0.5 mL (Jordin) PF, 0.5 mL Outr each Program (ActX) COVID-19 vaccine, COVID-19 vaccine, 2021-03-29 Completed [place] vector-nr, rS-Ad26, vector-nr, rS-Ad26, 00:00:00 [facility] PF, 0.5 mL (Jordin) PF, 0.5 mL Outr each Program (Jordin) COVID-19 vaccine, COVID-19 vaccine, 2021-03-29 Completed [place] vector-nr, rS-Ad26, vector-nr, rS-Ad26, 00:00:00 [facility] PF, 0.5 mL (Jordin) PF, 0.5 mL Outr each Program (ActX) COVID-19 vaccine, COVID-19 vaccine, 2021-03-29 Completed [place] vector-nr, rS-Ad26, vector-nr, rS-Ad26, 00:00:00 [facility] PF, 0.5 mL (Jordin) PF, 0.5 mL Outr each Program (ActX) COVID-19 vaccine, COVID-19 vaccine, 2021-03-29 Completed [place] vector-nr, rS-Ad26, vector-nr, rS-Ad26, 00:00:00 [facility] PF, 0.5 mL (Jordin) PF, 0.5 mL Outr each Program (ActX) COVID-19 vaccine, COVID-19 vaccine, 2021-03-29 Completed [place] vector-nr, rS-Ad26, vector-nr, rS-Ad26, 00:00:00 [facility] PF, 0.5 mL (Jordin) PF, 0.5 mL Outr each Program (ActX) COVID-19 vaccine, COVID-19 vaccine, 2021-03-29 Completed [place] vector-nr, rS-Ad26, vector-nr, rS-Ad26, 00:00:00 [facility] PF, 0.5 mL (Jordin) PF, 0.5 mL Outr each Program (ActX) COVID-19 vaccine, COVID-19 vaccine, 2021-03-29 Completed [place] vector-nr, rS-Ad26, vector-nr, rS-Ad26, 00:00:00 [facility] PF, 0.5 mL (Jordin) PF, 0.5 mL Outr each Program (ActX) COVID-19 vaccine, COVID-19 vaccine, 2021-03-29 Completed [place] vector-nr, rS-Ad26, vector-nr, rS-Ad26, 00:00:00 [facility] PF, 0.5 mL (Jordin) PF, 0.5 mL Outr each Program (ActX) Vital Signs Vital Name Observation Time Observation Value Comments Source Height 2022-06-18 00:00:00 62.5 [in_i] [facility] BP Diastolic 2022-06-03 00:00:00 77 mm[Hg] [facility] Height 2022-06-03 00:00:00 62.5 [in_i] [facility] BMI (Body Mass 2022-06-03 00:00:00 26.3 kg/m2 [place] [facility]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 [facility] BP Systolic 2022-06-03 00:00:00 115 mm[Hg] [facility] Body Weight 2022-06-03 00:00:00 2342 [oz_av] [facility] BP Diastolic 2022-04-10 00:00:00 85 mm[Hg] [facility] Height 2022-04-10 00:00:00 62.5 [in_i] [facility] BMI (Body Mass 2022-04-10 00:00:00 26.5 kg/m2 [place] [facility]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 [facility] BP Systolic 2022-04-10 00:00:00 130 mm[Hg] [facility] Body Weight 2022-04-10 00:00:00 2358 [oz_av] [facility] BP Diastolic 2022-03-27 00:00:00 81 mm[Hg] [place] [facility] [facility] Height 2022-03-27 00:00:00 62.5 [in_i] [place] [facility] 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 00:00: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) [facility] BP Systolic 2022-03-27 00:00:00 128 mm[Hg] [place] [facility] Body Weight 2022-03-27 00:00:00 2371 [oz_av] [place] [facility] BP Diastolic 2022-03-07 00:00:00 78 mm[Hg] [place] [facility] Height 2022-03-07 00:00:00 62.5 [in_i] [facility] BMI (Body Mass 2022-03-07 00:00:00 26.5 kg/m2 [place] [facility]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 [facility] Index) [facility] BP Systolic 2022-03-07 00:00:00 129 [facility]Hg[facility] Body Weight 2022-03-07 00:00:00 147.2 [lb_av] [facility] BP Diastolic 2022-02-18 00:00:00 86 mm[Hg] [facility] Height 2022-02-18 00:00:00 62.5 [in_i] [facility] 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 (Body Mass 2022-02-18 00:00:00 27.5 kg/m2 [place] [facility]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 [facility] Index) [facility] BP Systolic 2022-02-18 00:00:00 122 mm[Hg] [facility] Body Weight 2022-02-18 00:00:00 2448 [oz_av] [facility] Procedures Procedure Date / Time Performing Clinician Source Performed MAMMO, diagnostic, 2022-06-03 00:00:00 [place] [facility] digital, bilateral Health Outrea [facility] Program US, breast, bilateral 2022-06-03 00:00:00 [place] 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 US, thyroid 2022-03-27 00:00:00 [place] [facility] MAMMO, screening, 2022-02-18 00:00:00 [place] [facility] digital, bilateral Health Outrea ch Program Colonoscopy 2018-04-28 00:00:00 [place] [facility] Egd 2018-04-28 00:00:00 [place] [facility] Partial Hysterectomy 2011-04-28 00:00:00 [place] [facility] Plan of Care Planned Activity Planned Date Details Comments Source Future Scheduled 2022-07-10 celiac disease [place] Test 00:00:00 comprehensive panel, [facility] serum [code = celiac Outreac h Program disease comprehensive panel, serum] Future Scheduled 2022-07-10 TSH + free T4, serum [place] Test 00:00:00 [code = TSH + free T4, [facility] op[facility] Health serum] Outreach Progra m Future Scheduled 2022-07-10 T3, free, serum or [place] Test 00:00:00 plasma [code = T3, [facility] free, serum or plasma] Outre [facility] Future Scheduled 2022-07-10 thyroid peroxidase [place] Test 00:00:00 (tpo) Ab, serum [code [facility] = thyroid peroxidase Outreac h Program (tpo) Ab, serum] Future Scheduled 2022-07-10 CMP, serum or plasma [place] Test 00:00:00 [code = CMP, serum or [facility] plasma] Outreach Progra m Encounters Start End Encounter Admission Attending Care Care Encounter Source Date/Time Date/Time Type Type Clinicians Facility Department ID 2022-03-05 Inpatient COMPA [facility]ZYMANSKI [facility] [id number] [place] 09:30:00 RAEANN [id number] [facility] 2022-08-19 2022-08-19 Outpatient AMBREEN_[facility] 121 [id number] [place] 00:00:00 00:00:00 [place] [id number] [facility] 2022-08-14 2022-08-14 Outpatient AMBREEN_[facility] 121 [id number] [place] 00:00:00 00:00:00 HANA [id number] [facility] 2022-08-13 2022-08-13 Outpatient AMBREEN_[facility] 121 132-202 [place] 00:00:00 00:00:00 HANA [id number] [facility] 2022-08-13 2022[facility]08-[facility] [place] [facility] [id number] [place] 00:00:00 00:00:00 MD Clark: Fredrick hammer [address] [facility] Outreac [id number] h , Ph. Program (780) --20072022-08-11 2022-08-11 Outpatient [facility] 121 [id number] [place] 00:00:00 00:00:00 HANA [id number] [facility] 2022-08-11 2022-08-11 Outpatient [facility] 121 [id number] [place] 00:00:00 00:00:00 HANA [id number] [facility] 2022-08-05 2022-08-05 Outpatient [facility] 121 [id number] [place] 00:00:00 00:00:00 HANA [id number] [facility] 2022-07-30 2022-07-30 Outpatient [facility] 121 [id number] [place] 00:00:00 00:00:00 HANA [id number] [facility] 2022-07-08 2022-07-08 Outpatient [facility] 121 [id number] [place] 00:00:00 00:00:00 HANA 70823 [facility] 2022-06-25 2022-06-25 Outpatient [facility] 121 [id number] [place] 00:00:00 00:00:00 HANA [id number] [facility] 2022-06-18 2022-06-18 Outpatient [facility] 121 132-202 [place] 00:00:00 00:00:00 HANA [id number] [facility] 2022-06-18 2022-06-[facility] [place] [facility] [id number] 00:00:00 00:00:00 Fredrick Szymanski MD: [id number] [place] 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 2022-06-03 2022-06-03 Raeann [facility] [place] - [id number] M atagor 00:00:00 00:00:00 Fredrick Szymanski MD: 1700 [facility] Episc [place] Outreac [id number] h , Ph. Program 2022-06-02 2022-06-02 Outpatient [facility] 121 [id number] [place] 00:00:00 00:00:00 REJIA [id number] [facility] 2022-06-02 2022-06-02 Outpatient [facility] 121 132-202 [place] 00:00:00 00:00:00 HANA 73905 [facility] 2022-05-13 2022-05-13 Outpatient [facility] 121 132-202 [place] 00:00:00 00:00:00 REJIA [id number] [facility] 2022-05-13 2022-05-13 Outpatient [facility] 121 132-202 [place] 00:00:00 00:00:00 PINEDA 13059 [facility] 2022-05-13 2022-05-13 Outpatient [facility] 121 132-202 [place] 00:00:00 00:00:00 HANA 93854 [facility] 2022-05-03 2022-05-03 Outpatient [facility] 121 132-202 [place] 00:00:00 00:00:00 HANA [id number] [facility] 2022-04-11 2022-04-11 Outpatient [facility] 121 132-202 [place] 00:00:00 00:00:00 REJIA 87412 [facility] 2022-04-11 2022-04-11 Outpatient [facility] 121 132-202 [place] 00:00:00 00:00:00 PINEDA [id number] [facility] 2022-04-11 2022-04-11 [facility] - [id number] [place] 00:00:00 00:00:00 MD Calrk: Fredrick hammer [address] [facility] [place] Outre [id number] h , Ph. Program (979) 2022-04-10 2022-04-10 Outpatient [facility] 121 132-202 [place] 00:00:00 00:00:00 HANA [id number] [facility] 2022-04-10 2022-04-10 Raeann [facility] [place] - [id number] [place] 00:00:00 00:00:00 Fredrick Szymanski MD: [address] [facility] [place] [id number] h , Ph. Program 2022-04-09 2022-04-09 Outpatient [facility] 121 132-202 [place] 00:00:00 00:00:00 HANA [id number] [facility] 2022-04-08 2022-04-08 Outpatient [facility] 121 [id number] [place] 00:00:00 00:00:00 HANA [id number] [facility] 2022-04-02 2022-04-02 Outpatient [facility] 121 132-202 [place] 00:00:00 00:00:00 HANA [id number] [facility] 2022-04-01 2022-04-01 Outpatient [facility] 121 132-202 [place] 00:00:00 00:00:00 HANA 75397 [facility] 2022-03-28 2022-03-28 Outpatient [facility] 121 132-202 [place] 00:00:00 00:00:00 HANA 16628 [facility] 2022-03-28 2022-03-28 [facility] [place] [facility] [id number] [place] 00:00:00 00:00:00 MD Clark: Fredrick hammer 1700 [facility] Episco p Bird [facility] - [place], [place] [facility] Outre [id number] h , Ph. Program (979) 2022-03-27 2022-03-27 Outpatient [facility] 121 132-202 [place] 00:00:00 00:00:00 HANA 58137 [facility] 2022-03-27 2022-03-27 Raeann [facility] [place] - [id number] M atagor 00:00:00 00:00:00 Fredrick Szymanski MD: 17[address] [facility] Ep[facility] op Bird [facility] [place], [place], [place] Outre [address] h , Ph. Program 2022-03-26 2022-03-26 Outpatient [facility] 121 [id number] [place] 00:00:00 00:00:00 HANA 83451 [facility] 2022-03-25 2022-03-25 Outpatient [facility] 121 132-202 [place] 00:00:00 00:00:00 HANA 74981 [facility] 2022-03-18 2022-03-18 Outpatient [facility] 121 132-202 [place] 00:00:00 00:00:00 HANA [id number] [facility] 2022-03-07 2022-03-07 Outpatient [facility] 121 132-202 [place] 00:00:00 00:00:00 HANA 87167 [facility] 2022-03-07 2022-03-07 [facility] [place] - [id number] [place] 00:00:00 00:00:00 MD Clark: Fredrick hammer 1700 [facility] Episco p Bird [facility] [place], [place] [facility] Outre [id number] h , Ph. Program (979) -20072022-03-05 2022-03-05 Outpatient [facility] 121 132-202 [place] 00:00:00 00:00:00 HANFransisco 33015 [facility] 2022-03-04 2022-03-04 Outpatient [facility] 121 132-202 [place] 00:00:00 00:00:00 HANA 74750 [facility] 2022-02-18 2022-02-18 Outpatient [facility] 121 132-202 [place] 00:00:00 00:00:00 PINEDA [id number] [facility] 2022-02-18 2022-02-18 Raenan [facility] [place] - [id number] M at[place]or 00:00:00 00:00:00 Fredrick Szymanski MD: 1700 [facility] Episc op [facility] susie [address], [place], [place] Outreac [address] h , Ph. Program 2022-02-17 2022-02-17 Outpatient [facility] 121 [id number] [place] 00:00:00 00:00:00 PINEDA [id number] [facility] 2022-02-08 2022-02-08 Outpatient [facility] 121 132-202 [place] 00:00:00 00:00:00 PINEDA [id number] [facility] 2021-10-18 2021-10-18 LOCALIZD 3 [place], [facility] [id number] 08:24:00 23:59:00 [facility] PRACHI [facility] LUMP TRUNK [address] V[address]SA) [place] [address] 2021-10-18 2021-10-18 Inpatient [facility] [id number] 00:00:00 00:00:00 [place] [id number] [facility], [id number] [facility] [id number]) [place] [address] 2021-10-18 2021-10-18 Inpatient [facility] [id number] [facility] 00:[facility]:00 00:00:00 [place] [id number] [facility], [id number] [facility] [id number] (ANUPAMA/TEVIN NIELSEN, V/) [place] [address] Results Test Description Test Time Test Comments Results Result [facility] e Comments BREAST ULTRASOUND 2022-08-07 CORE BIOPSY RIGHT 07:56:10 Name: Enrico : 1980 Sex: F - BREAST ULTRASOUND CORE BIOPSY RIGHTULTRASOUND GUIDED BIOPSY RIGHT BREAST WITH MARKING DEVICE INSERTED: 07/31/2022LINICAL: A. Right breast: Solid mass at the 5 o'clock position, 5 cm from the nipple, for which ultrasound-guided core biopsy is recommended. Comparison is made to exams dated 07/23/2022 ultrasound and 07/23/2022 mammogram - [facility]. An ultrasound guided biopsy using real-time ultrasound was performed for the concerning mass located in the right breast at 5 o'clock in the retroareolar region. The skin was prepped in the usual manner. Local anesthetic was administered to the access site. A 14 gauge biopsy needle was placed adjacent to the abnormality under ultrasound guidance. Once the needle was documented to be in the correct location, three specimens were obtained using an automated biopsy gun. A clip was inserted into the biopsy cavity. The specimens were sent to the laboratory for pathological analysis. IMPRESSION: ULTRASOUND GUIDED BIOPSYUltrasound guided biopsy of the mass in the right breast at 5 o'clock in the retroareolar region with placement of a clip was successful with no apparent post procedure complications. Pathology returned as invasive ductal carcinoma with benign reactive lymph node in the right axilla. This is concordant with imaging. Surgical and oncologic consultation recommended.Da Carmichael M.D. et/:08/07/2022 07:56:10 Maintenance And Repair Worker: Keegan IRWIN, [facility] sent: Surgical Consult Recommended DIAG MAMM RIGHT 2022-07-31 CAD DIGITAL 11:58:39 Name: Enrico: 1980 Sex: F - DIAG MAMM RIGHT CAD DIGITALUNILATERAL RIGHT DIGITAL DIAGNOSTIC MAMMOGRAM WITH CAD: 07/31/2022LINICAL: Right post clip. Current mammographic images were evaluated by [employer] CAD (computer-aided detection) software. Comparison is made to exam dated 07/23/2022 mammogram - [facility] The tissue of right breast is extremely dense, which lowers the sensitivity of mammography. Image shows the axillary biopsy clip located in the expected location. The other clip is not seen. IMPRESSION: POST PROCEDURE IMAGING FOR MARKER PLACEMENTThe axillary biopsy clip which appears in the expected location. The clip in the breast was not seen, likely due to the location. Da Carmichael M.D. et/:07/31/2022 11:58:39 Maintenance And Repair Worker: Blanche IRWIN, [facility] BI-RADS: Post-procedure mammogram for marker placement BREAST ULTRASOUND 2022-07-23 BILATERAL 16:29:32 Name: Enrico: 1980 Sex: F - BREAST ULTRASOUND BILATERALCOMPLETE ULTRASOUND OF BOTH BREASTS AND AXILLA: 07/23/2022LINICAL: Right breast lump x 3 months at 4 o'clock, per patient has increase in size. Comparison is made to exam dated 07/23/2022 mammogram - [facility] Color flow, real-time, and Doppler ultrasound of both breasts four quadrants, retroareolar, and axilla regions were performed. Matt scale images of the real-time examination were reviewed. Multiple simple cysts are noted bilaterally, benign. The largest largest is on the left at the 3 o'clock position, 2 cm from the nipple, measuring 2.3 x 2.4 x 1.0 cm.On the right, the 5 o'clock position, 5 cm from the nipple, a solid hypoechoic mass is noted measuring 0.9 x 1.2 x 0.5 cm, correlating with the palpable region of concern. This mass is oriented parallel to the skin, but does demonstrate slightly obscured margins. Biopsy is recommended for further evaluation.In the right axilla, multiple prominent lymph nodes are noted, with maximum cortical thickness of 4 mm. These are indeterminate, and biopsy is recommended for further evaluation.No significant abnormalities were seen sonographically in the left axilla. IMPRESSION: SUSPICIOUS OF MALIGNANCY 1. Right breast: Solid mass at the 5 o'clock position, 5 cm from the nipple, for which ultrasound-guided core biopsy is recommended.2. Right axilla: Indeterminant adenopathy for which ultrasound-guided core biopsy is recommended.The results were reviewed with the patient. Gloria marshall/:07/23/2022 16:29:32 Maintenance And Repair Worker: Keegan Clark , [facility] sent: BIRADS 4/5 Biopsy Ultrasound BI-RADS: 4 Suspicious for malignancy DIAG MAMM 2022-07-23 BILATERAL HARRY 16:25:52 CAD DIGITAL Name: Enrico: 1980 Sex: F - DIAG MAMM BILATERAL HARRY CAD DIGITALBILATERAL FIRST EVER DIGITAL DIAGNOSTIC MAMMOGRAM 3D/2D WITH CAD: 07/23/2022LINICAL: Right breast lump x 3 months at 4 o'clock. Digital breast tomosynthesis was performed in addition to routine CC and MLO views. Current mammographic images were evaluated by [employer] CAD (computer-aided detection) software. No prior exams were available for comparison. The tissue of both breasts is extremely dense, which lowers the sensitivity of mammography. Multiple partially obscured masses are noted bilaterally, one of which on the right correlates with the palpable region of concern. Ultrasound correlation is to follow.No suspicious architectural distortion, malignant type calcification, or lymph node abnormality detected. IMPRESSION: INCOMPLETE: ADDITIONAL IMAGING EVALUATION NEEDEDFurther evaluation with ultrasound is performed and reported separately.Gloria marshall/:07/23/2022 16:25:52 Maintenance And Repair Worker: Peri IRWIN, [facility]WMamm[facility] BI-RADS: 0 Incomplete: Additional Imaging Evaluation Needed Influenza virus A and B and SARS-CoV-2 (COVID-19) and 2021-04 13:55:08 Respiratory syncytial virus RNA panel - Respiratory specimen by JODI with probe detection Test Item Value Reference Range Interpretation Comme nts Influenza A (test code = Influenza A) negative Influenza B (test code = Influenza B) negative RSV (test code = RSV) negative Sars Cov 2 (test code = Sars Cov 2) negative [facility] and B and SARS-CoV-2 (COVID-19) and Respiratory syncytial virus RNA panel - Respiratory specimen by JODI with probe [id number] 13:55:08 Test Item Value Reference Range Interpretation Comments Influenza A (test code = Influenza negative A) Influenza B (test code = Influenza negative B) RSV (test code = RSV) negative Sars Cov 2 (test code = Sars Cov 2) negative [facility] A and B and SARS-CoV-2 (COVID-19) and Respiratory syncytial virus RNA panel - Respiratory specimen by JODI with probe [id number] 13:55:08 Test Item Value Reference Range Interpretation Comments Influenza A (test code = Influenza negative A) Influenza B (test code = Influenza negative B) RSV (test code = RSV) negative Sars Cov 2 (test code = Sars Cov 2) negative [facility] 2000 panel - Serum or [id number] 00:00:00 Test Item Value Reference Range Interpretation Comments Glucose [Mass/volume] in 92 mg/dL 70-99 Serum or Plasma (test code = 2345-7) Urea nitrogen [Mass/volume] 11 mg/dL 6-24 in Serum or Plasma (test code = 3094-0) Creatinine [Mass/volume] in 0.76 mg/dL 0.57-1.00 Serum or Plasma (test code = 2160-0) eGFR (test code = eGFR) 102 mL/min/1.73 >59 Urea nitrogen/Creatinine 14 9-23 [Mass Ratio] in Serum or Plasma (test code = 3097-3) Sodium [Moles/volume] in 141 mmol/L 134-144 Serum or Plasma (test code = 2951-2) Potassium [Moles/volume] in 3.8 mmol/L 3.5-5.2 Serum or Plasma (test code = 2823-3) Chloride [Moles/volume] in 105 mmol/L 96-106 Serum or Plasma (test code = 2075-0) Carbon dioxide, total 24 mmol/L 20-29 [Moles/volume] in Serum or Plasma (test code = 8-9) Calcium [Mass/volume] in 9.6 mg/dL 8.7-10.2 Serum or Plasma (test code = 66245-0) Protein [Mass/volume] in 7.1 g/dL 6.0-8.5 Serum or Plasma (test code = 2885-2) Albumin [Mass/volume] in 4.6 g/dL 3.8-4.8 Serum or Plasma (test code = 1751-7) Globulin [Mass/volume] in 2.5 g/dL 1.5-4.5 Serum by calculation (test code = 54988-7) Albumin/Globulin [Mass Ratio] 1.8 1.2-2.2 in Serum or Plasma (test code = 1759-0) Bilirubin.total [Mass/volume] 0.5 mg/dL 0.0-1.2 in Serum or Plasma (test code = 1975-2) Alkaline phosphatase 112 IU/L 44-121 [Enzymatic activity/volume] in Serum or Plasma (test code = 6768-6) Aspartate aminotransferase 19 IU/L 0-40 [Enzymatic activity/volume] in Serum or Plasma (test code = 1920-8) Alanine aminotransferase 46 IU/L 0-32 H [Enzymatic activity/volume] in Serum or Plasma (test code = 1742-6) [facility] W Auto Differential panel - Blood 2022-03-05 00:00:00 Test Item Value Reference Range Interpretation Comments Leukocytes [#/volume] in Blood 7.4 x10e3/uL 3.4-10.8 by Automated count (test code = 6690-2) Erythrocytes [#/volume] in 4.40 x10e6/uL 3.77-5.28 Blood by Automated count (test code = 789-8) Hemoglobin [Mass/volume] in 14.6 g/dL 11.1-15.9 Blood (test code = 718-7) Hematocrit [Volume Fraction] of 43.6 % 34.0-46.6 Blood by Automated count (test code = 4544-3) Erythrocyte mean corpuscular 99 fL 79-97 H volume [Entitic volume] by Automated count (test code = 787-2) Erythrocyte mean corpuscular 33.2 pg 26.6-33.0 H hemoglobin [Entitic mass] by Automated count (test code = 785-6) Erythrocyte mean corpuscular 33.5 g/dL 31.5-35.7 hemoglobin concentration [Mass/volume] by Automated count (test code = 786-4) Erythrocyte distribution width 14.1 % 11.7-15.4 [Ratio] by Automated count (test code = 788-0) Platelets [#/volume] in Blood 248 x10e3/uL 150-450 by Automated count (test code = 777-3) Neutrophils/100 leukocytes in 55 % not estab. Blood by Automated count (test code = 770-8) Lymphocytes/100 leukocytes in 35 % not estab. Blood by Automated count (test code = 736-9) Monocytes/100 leukocytes in 8 % not estab. Blood by Automated count (test code = 5905-5) Eosinophils/100 leukocytes in 1 % not estab. Blood by Automated count (test code = 713-8) Basophils/100 leukocytes in 1 % not estab. Blood by Automated count (test code = 706-2) immature cells (test code = magnet placer immature cells) Neutrophils [#/volume] in Blood 4.1 x10e3/uL 1.4-7.0 by Automated count (test code = 751-8) Lymphocytes [#/volume] in Blood 2.6 x10e3/uL 0.7-3.1 by Automated count (test code = 731-0) Monocytes [#/volume] in Blood 0.6 x10e3/uL 0.1-0.9 by Automated count (test code = 742-7) Eosinophils [#/volume] in Blood 0.1 x10e3/uL 0.0-0.4 by Automated count (test code = 711-2) Basophils [#/volume] in Blood 0.1 x10e3/uL 0.0-0.2 by Automated count (test code = 704-7) Immature granulocytes/100 0 % not estab. leukocytes in Blood by Automated count (test code = 31449-9) Immature granulocytes 0.0 x10e3/uL 0.0-0.1 [#/volume] in Blood by Automated count (test code = 16671-8) Nucleated erythrocytes/100 magnet placer leukocytes [Ratio] in Blood by Automated count (test code = 53151-4) Morphology [Interpretation] in magnet placer Blood Narrative (test code = 94631-4) [facility] panel - Serum or Plasma 2022-03-05 00:00:00 Test Item Value Reference Range Interpretation Comments Cholesterol [Mass/volume] in Serum 114 mg/dL 100-199 or Plasma (test code = 2093-3) Triglyceride [Mass/volume] in Serum 80 mg/dL 0-149 or Plasma (test code = 2571-8) Cholesterol in HDL [Mass/volume] in 58 mg/dL >39 Serum or Plasma (test code = 2085-9) Cholesterol in VLDL [Mass/volume] 16 mg/dL 5-40 in Serum or Plasma by calculation (test code = 53096-2) Cholesterol in LDL [Mass/volume] in 40 mg/dL 0-99 Serum or Plasma by calculation (test code = 05053-6) Laboratory comment [Text] in Report magnet placer Narrative (test code = 71611-3) [facility] HospitalHemoglobin A1c/Hemoglobin.total in [id number] 00:00:00 Test Item Value Reference Range Interpretation Comments Hemoglobin A1c/Hemoglobin.total in 5.1 % 4.8-5.6 Blood (test code = 4548-4) Glucose mean value [Mass/volume] in 100 mg/dL Blood Estimated from glycated hemoglobin (test code = 68167-7) [facility] HospitalThyrotropin [Units/volume] in Serum or Plasma by Detection limit <= 0.005 mIU/[id number] 00:00:00 Test Item Value Reference Range Interpretation Comments Thyrotropin [Units/volume] in 0.354 uIU/mL 0.450-4.500 L Serum or Plasma by Detection limit <= 0.005 mIU/L (test code = 44022-4) Thyroxine (T4) free 1.54 NG/dL 0.82-1.77 [Mass/volume] in Serum or Plasma (test code = 3024-7) [facility], [id number] 00:00:00 Test Item Value Reference Range Interpretation Comments Interpretation and review of laboratory note results (test code = 94446-0) Report (test code = 73036-1) . [facility] - Serum or [id number] 00:00:00 Test Item Value Reference Range Interpretation Comments Glucose [Mass/volume] in 92 mg/dL 70-99 Serum or Plasma (test code = 2345-7) Urea nitrogen [Mass/volume] 11 mg/dL 6-24 in Serum or Plasma (test code = 3094-0) Creatinine [Mass/volume] in 0.76 mg/dL 0.57-1.00 Serum or Plasma (test code = 2160-0) Glomerular filtration 102 mL/min/1.73 >59 rate/1.73 sq M.predicted [Volume Rate/Area] in Serum, Plasma or Blood by Creatinine-based formula (CKD-EPI 2020) (test code = 99190-5) Urea nitrogen/Creatinine 14 9-23 [Mass Ratio] in Serum or Plasma (test code = 3097-3) Sodium [Moles/volume] in 141 mmol/L 134-144 Serum or Plasma (test code = 2951-2) Potassium [Moles/volume] in 3.8 mmol/L 3.5-5.2 Serum or Plasma (test code = 2823-3) Chloride [Moles/volume] in 105 mmol/L 96-106 Serum or Plasma (test code = 207-0) Carbon dioxide, total 24 mmol/L 20-29 [Moles/volume] in Serum or Plasma (test code = 2027-) Calcium [Mass/volume] in 9.6 mg/dL 8.7-10.2 Serum or Plasma (test code = 55345-5) Protein [Mass/volume] in 7.1 g/dL 6.0-8.5 Serum or Plasma (test code = 2885-2) Albumin [Mass/volume] in 4.6 g/dL 3.8-4.8 Serum or Plasma (test code = 1751-7) Globulin [Mass/volume] in 2.5 g/dL 1.5-4.5 Serum by calculation (test code = 53916-8) Albumin/Globulin [Mass Ratio] 1.8 1.2-2.2 in Serum or Plasma (test code = 1759-0) Bilirubin.total [Mass/volume] 0.5 mg/dL 0.0-1.2 in Serum or Plasma (test code = 1974-) Alkaline phosphatase 112 IU/L 44-121 [Enzymatic activity/volume] in Serum or Plasma (test code = 6768-6) Aspartate aminotransferase 19 IU/L 0-40 [Enzymatic activity/volume] in Serum or Plasma (test code = 1920-8) Alanine aminotransferase 46 IU/L 0-32 H [Enzymatic activity/volume] in Serum or Plasma (test code = 174-6) [facility] W Auto Differential panel - Blood 2022-03-05 00:00:00 Test Item Value Reference Range Interpretation Comments Leukocytes [#/volume] in Blood 7.4 x10e3/uL 3.4-10.8 by Automated count (test code = 6690-2) Erythrocytes [#/volume] in 4.40 x10e6/uL 3.77-5.28 Blood by Automated count (test code = 789-8) Hemoglobin [Mass/volume] in 14.6 g/dL 11.1-15.9 Blood (test code = 718-7) Hematocrit [Volume Fraction] of 43.6 % 34.0-46.6 Blood by Automated count (test code = 4544-3) Erythrocyte mean corpuscular 99 fL 79-97 H volume [Entitic volume] by Automated count (test code = 787-2) Erythrocyte mean corpuscular 33.2 pg 26.6-33.0 H hemoglobin [Entitic mass] by Automated count (test code = 785-6) Erythrocyte mean corpuscular 33.5 g/dL 31.5-35.7 hemoglobin concentration [Mass/volume] by Automated count (test code = 786-4) Erythrocyte distribution width 14.1 % 11.7-15.4 [Ratio] by Automated count (test code = 788-0) Platelets [#/volume] in Blood 248 x10e3/uL 150-450 by Automated count (test code = 777-3) Neutrophils/100 leukocytes in 55 % not estab. Blood by Automated count (test code = 770-8) Lymphocytes/100 leukocytes in 35 % not estab. Blood by Automated count (test code = 736-9) Monocytes/100 leukocytes in 8 % not estab. Blood by Automated count (test code = 5905-5) Eosinophils/100 leukocytes in 1 % not estab. Blood by Automated count (test code = 713-8) Basophils/100 leukocytes in 1 % not estab. Blood by Automated count (test code = 706-2) immature cells (test code = magnet placer immature cells) Neutrophils [#/volume] in Blood 4.1 x10e3/uL 1.4-7.0 by Automated count (test code = 751-8) Lymphocytes [#/volume] in Blood 2.6 x10e3/uL 0.7-3.1 by Automated count (test code = 731-0) Monocytes [#/volume] in Blood 0.6 x10e3/uL 0.1-0.9 by Automated count (test code = 742-7) Eosinophils [#/volume] in Blood 0.1 x10e3/uL 0.0-0.4 by Automated count (test code = 711-2) Basophils [#/volume] in Blood 0.1 x10e3/uL 0.0-0.2 by Automated count (test code = 704-7) Immature granulocytes/100 0 % not estab. leukocytes in Blood by Automated count (test code = 14670-4) Immature granulocytes 0.0 x10e3/uL 0.0-0.1 [#/volume] in Blood by Automated count (test code = 61327-4) Nucleated erythrocytes/100 magnet placer leukocytes [Ratio] in Blood by Automated count (test code = 47671-3) Morphology [Interpretation] in magnet placer Blood Narrative (test code = 42214-2) [facility] or Plasma 2022-03-05 00:00:00 Test Item Value Reference Range Interpretation Comments Cholesterol [Mass/volume] in Serum 114 mg/dL 100-199 or Plasma (test code = 2093-3) Triglyceride [Mass/volume] in Serum 80 mg/dL 0-149 or Plasma (test code = 2571-8) Cholesterol in HDL [Mass/volume] in 58 mg/dL >39 Serum or Plasma (test code = 2085-9) Cholesterol in VLDL [Mass/volume] 16 mg/dL 5-40 in Serum or Plasma by calculation (test code = 63268-7) Cholesterol in LDL [Mass/volume] in 40 mg/dL 0-99 Serum or Plasma by calculation (test code = 22299-5) Laboratory comment [Text] in Report magnet placer Narrative (test code = 77113-6) [facility]/Hemoglobin.total in [id number] 00:00:00 Test Item Value Reference Range Interpretation Comments Hemoglobin A1c/Hemoglobin.total in 5.1 % 4.8-5.6 Blood (test code = 4548-4) Glucose mean value [Mass/volume] in 100 mg/dL Blood Estimated from glycated hemoglobin (test code = 52834-2) [facility] [Units/volume] in Serum or Plasma by Detection limit <= 0.005 mIU/[id number] 00:00:00 Test Item Value Reference Range Interpretation Comments Thyrotropin [Units/volume] in 0.354 uIU/mL 0.450-4.500 L Serum or Plasma by Detection limit <= 0.005 mIU/L (test code = 08254-9) Thyroxine (T4) free 1.54 NG/dL 0.82-1.77 [Mass/volume] in Serum or Plasma (test code = 3024-7) [facility], [id number] 00:00:00 Test Item Value Reference Range Interpretation Comments Interpretation and review of laboratory note results (test code = 60879-2) Report (test code = 58828-0) . [facility] - Serum or [id number] 00:00:00 Test Item Value Reference Range Interpretation Comments Glucose [Mass/volume] in 92 mg/dL 70-99 Serum or Plasma (test code = 2345-7) Urea nitrogen [Mass/volume] 11 mg/dL 6-24 in Serum or Plasma (test code = 3094-0) Creatinine [Mass/volume] in 0.76 mg/dL 0.57-1.00 Serum or Plasma (test code = 2160-0) eGFR (test code = eGFR) 102 mL/min/1.73 >59 Urea nitrogen/Creatinine 14 9-23 [Mass Ratio] in Serum or Plasma (test code = 3097-3) Sodium [Moles/volume] in 141 mmol/L 134-144 Serum or Plasma (test code = 2951-2) Potassium [Moles/volume] in 3.8 mmol/L 3.5-5.2 Serum or Plasma (test code = 2823-3) Chloride [Moles/volume] in 105 mmol/L 96-106 Serum or Plasma (test code = 2075-0) Carbon dioxide, total 24 mmol/L 20-29 [Moles/volume] in Serum or Plasma (test code = 2027-9) Calcium [Mass/volume] in 9.6 mg/dL 8.7-10.2 Serum or Plasma (test code = 32255-7) Protein [Mass/volume] in 7.1 g/dL 6.0-8.5 Serum or Plasma (test code = 2885-2) Albumin [Mass/volume] in 4.6 g/dL 3.8-4.8 Serum or Plasma (test code = 1751-7) Globulin [Mass/volume] in 2.5 g/dL 1.5-4.5 Serum by calculation (test code = 05212-2) Albumin/Globulin [Mass Ratio] 1.8 1.2-2.2 in Serum or Plasma (test code = 1759-0) Bilirubin.total [Mass/volume] 0.5 mg/dL 0.0-1.2 in Serum or Plasma (test code = 1975-2) Alkaline phosphatase 112 IU/L 44-121 [Enzymatic activity/volume] in Serum or Plasma (test code = 6768-6) Aspartate aminotransferase 19 IU/L 0-40 [Enzymatic activity/volume] in Serum or Plasma (test code = 1920-8) Alanine aminotransferase 46 IU/L 0-32 H [Enzymatic activity/volume] in Serum or Plasma (test code = 1742-6) [facility] W Auto Differential panel - Blood 2022-03-05 00:00:00 Test Item Value Reference Range Interpretation Comments Leukocytes [#/volume] in Blood 7.4 x10e3/uL 3.4-10.8 by Automated count (test code = 6690-2) Erythrocytes [#/volume] in 4.40 x10e6/uL 3.77-5.28 Blood by Automated count (test code = 789-8) Hemoglobin [Mass/volume] in 14.6 g/dL 11.1-15.9 Blood (test code = 718-7) Hematocrit [Volume Fraction] of 43.6 % 34.0-46.6 Blood by Automated count (test code = 4544-3) Erythrocyte mean corpuscular 99 fL 79-97 H volume [Entitic volume] by Automated count (test code = 787-2) Erythrocyte mean corpuscular 33.2 pg 26.6-33.0 H hemoglobin [Entitic mass] by Automated count (test code = 785-6) Erythrocyte mean corpuscular 33.5 g/dL 31.5-35.7 hemoglobin concentration [Mass/volume] by Automated count (test code = 786-4) Erythrocyte distribution width 14.1 % 11.7-15.4 [Ratio] by Automated count (test code = 788-0) Platelets [#/volume] in Blood 248 x10e3/uL 150-450 by Automated count (test code = 777-3) Neutrophils/100 leukocytes in 55 % not estab. Blood by Automated count (test code = 770-8) Lymphocytes/100 leukocytes in 35 % not estab. Blood by Automated count (test code = 736-9) Monocytes/100 leukocytes in 8 % not estab. Blood by Automated count (test code = 5905-5) Eosinophils/100 leukocytes in 1 % not estab. Blood by Automated count (test code = 713-8) Basophils/100 leukocytes in 1 % not estab. Blood by Automated count (test code = 706-2) immature cells (test code = magnet placer immature cells) Neutrophils [#/volume] in Blood 4.1 x10e3/uL 1.4-7.0 by Automated count (test code = 751-8) Lymphocytes [#/volume] in Blood 2.6 x10e3/uL 0.7-3.1 by Automated count (test code = 731-0) Monocytes [#/volume] in Blood 0.6 x10e3/uL 0.1-0.9 by Automated count (test code = 742-7) Eosinophils [#/volume] in Blood 0.1 x10e3/uL 0.0-0.4 by Automated count (test code = 711-2) Basophils [#/volume] in Blood 0.1 x10e3/uL 0.0-0.2 by Automated count (test code = 704-7) Immature granulocytes/100 0 % not estab. leukocytes in Blood by Automated count (test code = 23187-3) Immature granulocytes 0.0 x10e3/uL 0.0-0.1 [#/volume] in Blood by Automated count (test code = 53521-7) Nucleated erythrocytes/100 magnet placer leukocytes [Ratio] in Blood by Automated count (test code = 58086-0) Morphology [Interpretation] in magnet placer Blood Narrative (test code = 80595-2) [facility] - [facility] or Plasma 2022-03-05 00:00:00 Test Item Value Reference Range Interpretation Comments Cholesterol [Mass/volume] in Serum 114 mg/dL 100-199 or Plasma (test code = 2093-3) Triglyceride [Mass/volume] in Serum 80 mg/dL 0-149 or Plasma (test code = 2571-8) Cholesterol in HDL [Mass/volume] in 58 mg/dL >39 Serum or Plasma (test code = 2085-9) Cholesterol in VLDL [Mass/volume] 16 mg/dL 5-40 in Serum or Plasma by calculation (test code = 18005-3) Cholesterol in LDL [Mass/volume] in 40 mg/dL 0-99 Serum or Plasma by calculation (test code = 88021-8) Laboratory comment [Text] in Report magnet placer Narrative (test code = 36575-6) [facility]Hem[facility] A1c/Hemoglobin.total in [id number] 00:00:00 Test Item Value Reference Range Interpretation Comments Hemoglobin A1c/Hemoglobin.total in 5.1 % 4.8-5.6 Blood (test code = 4548-4) Glucose mean value [Mass/volume] in 100 mg/dL Blood Estimated from glycated hemoglobin (test code = 66886-3) [facility]Th[facility]in [Units/volume] in Serum or Plasma by Detection limit <= 0.005 mIU/[id number] 00:00:00 Test Item Value Reference Range Interpretation Comments Thyrotropin [Units/volume] in 0.354 uIU/mL 0.450-4.500 L Serum or Plasma by Detection limit <= 0.005 mIU/L (test code = 46199-2) Thyroxine (T4) free 1.54 NG/dL 0.82-1.77 [Mass/volume] in Serum or Plasma (test code = 3024-7) [facility], [id number] 00:00:00 Test Item Value Reference Range Interpretation Comments Interpretation and review of laboratory note results (test code = 23857-8) Report (test code = 58887-0) . [facility] - Serum or [id number] 00:00:00 Test Item Value Reference Range Interpretation Comments Glucose [Mass/volume] in 92 mg/dL 70-99 Serum or Plasma (test code = 2345-7) Urea nitrogen [Mass/volume] 11 mg/dL 6-24 in Serum or Plasma (test code = 3094-0) Creatinine [Mass/volume] in 0.76 mg/dL 0.57-1.00 Serum or Plasma (test code = 2160-0) eGFR (test code = eGFR) 102 mL/min/1.73 >59 Urea nitrogen/Creatinine 14 9-23 [Mass Ratio] in Serum or Plasma (test code = 3097-3) Sodium [Moles/volume] in 141 mmol/L 134-144 Serum or Plasma (test code = 2951-2) Potassium [Moles/volume] in 3.8 mmol/L 3.5-5.2 Serum or Plasma (test code = 2823-3) Chloride [Moles/volume] in 105 mmol/L 96-106 Serum or Plasma (test code = 5-0) Carbon dioxide, total 24 mmol/L 20-29 [Moles/volume] in Serum or Plasma (test code = 2027-9) Calcium [Mass/volume] in 9.6 mg/dL 8.7-10.2 Serum or Plasma (test code = 57474-1) Protein [Mass/volume] in 7.1 g/dL 6.0-8.5 Serum or Plasma (test code = 2885-2) Albumin [Mass/volume] in 4.6 g/dL 3.8-4.8 Serum or Plasma (test code = 1751-7) Globulin [Mass/volume] in 2.5 g/dL 1.5-4.5 Serum by calculation (test code = 44962-4) Albumin/Globulin [Mass Ratio] 1.8 1.2-2.2 in Serum or Plasma (test code = 1759-0) Bilirubin.total [Mass/volume] 0.5 mg/dL 0.0-1.2 in Serum or Plasma (test code = 1974-2) Alkaline phosphatase 112 IU/L 44-121 [Enzymatic activity/volume] in Serum or Plasma (test code = 6768-6) Aspartate aminotransferase 19 IU/L 0-40 [Enzymatic activity/volume] in Serum or Plasma (test code = 1920-8) Alanine aminotransferase 46 IU/L 0-32 H [Enzymatic activity/volume] in Serum or Plasma (test code = 1742-6) [facility] W Auto Differential panel - Blood 2022-03-05 00:00:00 Test Item Value Reference Range Interpretation Comments Leukocytes [#/volume] in Blood 7.4 x10e3/uL 3.4-10.8 by Automated count (test code = 6690-2) Erythrocytes [#/volume] in 4.40 x10e6/uL 3.77-5.28 Blood by Automated count (test code = 789-8) Hemoglobin [Mass/volume] in 14.6 g/dL 11.1-15.9 Blood (test code = 718-7) Hematocrit [Volume Fraction] of 43.6 % 34.0-46.6 Blood by Automated count (test code = 4544-3) Erythrocyte mean corpuscular 99 fL 79-97 H volume [Entitic volume] by Automated count (test code = 787-2) Erythrocyte mean corpuscular 33.2 pg 26.6-33.0 H hemoglobin [Entitic mass] by Automated count (test code = 785-6) Erythrocyte mean corpuscular 33.5 g/dL 31.5-35.7 hemoglobin concentration [Mass/volume] by Automated count (test code = 786-4) Erythrocyte distribution width 14.1 % 11.7-15.4 [Ratio] by Automated count (test code = 788-0) Platelets [#/volume] in Blood 248 x10e3/uL 150-450 by Automated count (test code = 777-3) Neutrophils/100 leukocytes in 55 % not estab. Blood by Automated count (test code = 770-8) Lymphocytes/100 leukocytes in 35 % not estab. Blood by Automated count (test code = 736-9) Monocytes/100 leukocytes in 8 % not estab. Blood by Automated count (test code = 5905-5) Eosinophils/100 leukocytes in 1 % not estab. Blood by Automated count (test code = 713-8) Basophils/100 leukocytes in 1 % not estab. Blood by Automated count (test code = 706-2) immature cells (test code = magnet placer immature cells) Neutrophils [#/volume] in Blood 4.1 x10e3/uL 1.4-7.0 by Automated count (test code = 751-8) Lymphocytes [#/volume] in Blood 2.6 x10e3/uL 0.7-3.1 by Automated count (test code = 731-0) Monocytes [#/volume] in Blood 0.6 x10e3/uL 0.1-0.9 by Automated count (test code = 742-7) Eosinophils [#/volume] in Blood 0.1 x10e3/uL 0.0-0.4 by Automated count (test code = 711-2) Basophils [#/volume] in Blood 0.1 x10e3/uL 0.0-0.2 by Automated count (test code = 704-7) Immature granulocytes/100 0 % not estab. leukocytes in Blood by Automated count (test code = 85601-2) Immature granulocytes 0.0 x10e3/uL 0.0-0.1 [#/volume] in Blood by Automated count (test code = 29297-2) Nucleated erythrocytes/100 magnet placer leukocytes [Ratio] in Blood by Automated count (test code = 86057-2) Morphology [Interpretation] in magnet placer Blood Narrative (test code = 59961-2) [facility] - [facility] or Plasma 2022-03-05 00:00:00 Test Item Value Reference Range Interpretation Comments Cholesterol [Mass/volume] in Serum 114 mg/dL 100-199 or Plasma (test code = 2093-3) Triglyceride [Mass/volume] in Serum 80 mg/dL 0-149 or Plasma (test code = 2571-8) Cholesterol in HDL [Mass/volume] in 58 mg/dL >39 Serum or Plasma (test code = 2085-9) Cholesterol in VLDL [Mass/volume] 16 mg/dL 5-40 in Serum or Plasma by calculation (test code = 48968-4) Cholesterol in LDL [Mass/volume] in 40 mg/dL 0-99 Serum or Plasma by calculation (test code = 76216-2) Laboratory comment [Text] in Report magnet placer Narrative (test code = 11019-8) [facility]Hem[facility] A1c/Hemoglobin.total in [id number] 00:00:00 Test Item Value Reference Range Interpretation Comments Hemoglobin A1c/Hemoglobin.total in 5.1 % 4.8-5.6 Blood (test code = 4548-4) Glucose mean value [Mass/volume] in 100 mg/dL Blood Estimated from glycated hemoglobin (test code = 25322-1) [facility]Th[facility] [Units/volume] in Serum or Plasma by Detection limit <= 0.005 mIU/[id number] 00:00:00 Test Item Value Reference Range Interpretation Comments Thyrotropin [Units/volume] in 0.354 uIU/mL 0.450-4.500 L Serum or Plasma by Detection limit <= 0.005 mIU/L (test code = 14122-8) Thyroxine (T4) free 1.54 NG/dL 0.82-1.77 [Mass/volume] in Serum or Plasma (test code = 3024-7) [facility], [id number] 00:00:00 Test Item Value Reference Range Interpretation Comments Interpretation and review of laboratory note results (test code = 68285-7) Report (test code = 68354-5) . [facility] HospitalUS EXTREMITY NON VASC-SPECIFIC AREA 2021-10-18 09:55:07 [facility] [place])Name: ENRICO MALIN : 1980 Sex: FProcedure: US EXTREMITY NON VASC-SPECIFIC AREAOrder Date: 10/18/2021 8:00 AMOrdering Provider: KAILEY ANDERSONClinical Indication: [id number]: Mass of trunk, right axillary painComparison: NoneTechnique: Real time ultrasound was utilized for evaluation of the soft tissuesof the right axillary region.Findings:Targeted ultrasound of the right axilla was obtained. There is nolymphadenopathy.No solid or cystic massIMPRESSION:1. Negative targeted ultrasound of the right axilla.This final report was electronically signed by Dr Johnson Peguero MD 29:49 AMDictated By: JOHNSON PEGUERO.Date: 10/18/2021 09:49STLML
[2022-10-31] MEDS ORDERED: MORPHINE 4 MG/ML SYR ONE (23:56)
[2022-11-01] MEDS ORDERED: MORPHINE 2 MG/ML SYR ONE (00:02)
[2022-11-01 00:21] LABS: Absolute Lymphocytes (CBC) 2.6 K/uL (0.7-4.9); Hematocrit 40.2 % (36.0-45.0); Lymphocytes % 14.7 % (15.3-44.8); MCV 100.2 fL (80-100); RBC Red Blood Cell Count 4.01 M/uL (3.86-4.86)
[2022-11-01 00:24] LABS: Specific Gravity 1.038 (1.005-1.030)
[2022-11-01 00:28] LABS: Protime INR 1.02
[2022-11-01 00:30] LABS: Specific Gravity > 1.030 (1.005-1.030); Urine Bacteria >50 /HPF (<20); Urine Bilirubin NEGATIVE (Negative); Urine Blood Negative (Negative); Urine Clarity Extremely Turbid (Clear); Urine Color Yellow (Yellow); Urine Glucose NEGATIVE (Negative); Urine Mucus 3+ /HPF (None Seen); Urine Protein 1+ (Negative); Urine Urobilinogen Normal (Normal); Urine WBC Clump Occasional /HPF (None Seen); Urine pH 6.5 (5.0-7.0)
[2022-11-01 00:41] LABS: ALT/SGPT 23 U/L (13-56); AST/SGOT 8 U/L (15-37); Alkaline Phosphatase 101 U/L (45-117); BUN Blood Urea Nitrogen 16 mg/dL (7-18); Bicarbonate 29 mEq/L (21-32); Bilirubin Direct 0.1 mg/dL (0-0.2); Bilirubin Indirect, Calculated 0.3 mg/dL (0.2-0.8); Bilirubin Total 0.4 mg/dL (0.2-1.0); Glomerular Filtration Rate 90 ml/min (=/>90); Glucose Level 102 mg/dL (74-106); Magnesium 1.9 mg/dL (1.6-2.4); NT PRO-BNP 116 pg/mL (<125); Potassium 3.6 mEq/L (3.5-5.1); Protein, Total 8.2 g/dL (6.4-8.2); Sodium Level 139 mEq/L (136-145)
[2022-11-01 00:56] LABS: Troponin High Sensitivity < 3.0 pg/mL (<58.9)
--- NOTE | 2022-11-01 04:29 | ER ---
Nurse's Notes [facility] Name: Kaia Feng Age: 42 yrs Sex: Female : 1980 Arrival Date: 10/31/2022 Time: 21:31 Bed 11 Private MD: Diagnosis: Pneumonia, unspecified organism;UTI/ Urinary tract infection, site not specified;Fracture of one rib, left side Presentation: 10/31 22:03 Chief complaint: Patient states: left sided rib and back pain X5 days. 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 Coronavirus screen: Client denies travel out of the [place] in the last 14 days. At this time, the client does not indicate any symptoms associated with coronavirus-19. Ebola Screen: No symptoms or risks identified at this time. Initial Sepsis Screen: Does the patient meet any 2 criteria? No. Patient's initial sepsis screen is negative. Does the patient have a suspected source of infection? No. Patient's initial sepsis screen is negative. Risk Assessment: Do you want to hurt yourself or someone else? Patient reports no desire to harm self or others. Onset of symptoms is unknown. 22:03 Method Of Arrival: Ambulatory lg3 22:03 Acuity: LUCIANO 3 lg3 Triage Assessment: 22:05 General: Appears in no apparent distress. comfortable, Behavior is calm, cooperative. lg3 Pain: Complains of pain in left sided rib and back. EENT: No deficits noted. No signs and/or symptoms were reported regarding the EENT system. Neuro: No deficits noted. Bush Agitation-Sedation Scale (RASS): 0 - Alert and Calm Level of Consciousness is awake, alert, obeys commands, Oriented to person, place, time, situation. Cardiovascular: No deficits noted. Denies chest pain, Capillary refill < 3 seconds Clubbing of nail beds is absent JVD is absent Patient's skin is warm and dry. Respiratory: Reports cough that is Denies shortness of breath labored breathing. GI: No deficits noted. No signs and/or symptoms were reported involving the gastrointestinal system. : No deficits noted. No signs and/or symptoms were reported regarding the genitourinary system. Derm: No deficits noted. No signs and/or symptoms reported regarding the dermatologic system. Skin is intact, is healthy with good turgor, Skin is dry, Skin is normal, Skin temperature is warm. Musculoskeletal: No deficits noted. Reports pain in back. 11/01 04:50 Respiratory: Onset: The symptoms/episode began/occurred 5 days ago. pf1 SYSTEM CONTROLLER: 10/31 22:05 LMP N/A - Hysterectomy lg3 Historical: - Allergies: 22:05 No Known Allergies; lg3 - Home Meds: 22:05 Prozac Oral [Active]; Albuterol Inhl [Active]; lg3 - PMHx: 22:05 Asthma; Anxiety; breast cancer; lg3 - PSHx: 22:05 Lumpectomy of breast; lg3 22:08 hysterectomy; lg3 - Immunization history:: Adult Immunizations up to date, Client reports receiving the 2nd dose of the Covid vaccine. - Social history:: Smoking status: Patient reports the use of cigarette tobacco products, smokes one-half pack cigarettes per day, Patient/guardian denies using alcohol, street drugs. Screenin/07 03:00 [facility] ED Fall Risk Assessment (Adult) History of falling in the last 3 months, pf1 including since admission No falls in past 3 months (0 pts) Confusion or Disorientation No (0 pts) Intoxicated or Sedated No (0 pts) Impaired Gait No (0 pts) Mobility Assist Device Used No (0 pt) Altered Elimination No (0 pt) Score/Fall Risk Level 0 - 2 = Low Risk Oriented to surroundings, Maintained a safe environment, Educated pt \T\ family on fall prevention, incl call for assistance when getting out of bed, Assessed \T\ reinforced patient's understanding of fall precautions, Provided non-skid footwear, Hourly rounding (assess needs \T\ fall precautionary measures) done, Used ambulatory aids as needed (educated on \T\ assisted with), Used gait belt as appropriate. 03:00 Abuse screen: Denies threats or abuse. Nutritional screening: No deficits noted. pf1 Tuberculosis screening: No symptoms or risk factors identified. Assessment: 00:00 General: Appears Behavior is calm, cooperative, appropriate for age, quiet. pf1 00:00 Pain: Complains of pain in left side chestwall pain and back Pain currently is 5 out of pf1 10 on a pain scale. Neuro: Level of Consciousness is awake, alert, obeys commands, Oriented to person, place, time, situation. Cardiovascular: Reports chest pain, shortness of breath, Capillary refill < 3 seconds Patient's skin is warm and dry. Respiratory: Reports shortness of breath on exertion Airway is patent Respiratory effort is even, unlabored, Respiratory pattern is regular, symmetrical. GI: No deficits noted. No signs and/or symptoms were reported involving the gastrointestinal system. : No deficits noted. No signs and/or symptoms were reported regarding the genitourinary system. EENT: No deficits noted. No signs and/or symptoms were reported regarding the EENT system. Derm: No deficits noted. No signs and/or symptoms reported regarding the dermatologic system. Musculoskeletal: No deficits noted. No signs and/or symptoms reported regarding the musculoskeletal system. 01:00 Reassessment: Patient appears in no apparent distress at this time. Patient and/or pf1 family updated on plan of care and expected duration. Pain level reassessed. Patient is alert, oriented x 3, equal unlabored respirations, skin warm/dry/pink. Patient states symptoms have improved. 02:00 Reassessment: Patient appears in no apparent distress at this time. Patient and/or pf1 family updated on plan of care and expected duration. Pain level reassessed. Patient is alert, oriented x 3, equal unlabored respirations, skin warm/dry/pink. Patient states feeling better. Patient states symptoms have improved. 03:00 Reassessment: Patient appears in no apparent distress at this time. Patient and/or pf1 family updated on plan of care and expected duration. Pain level reassessed. Patient is alert, oriented x 3, equal unlabored respirations, skin warm/dry/pink. Patient states feeling better. Patient states symptoms have improved. 04:00 Reassessment: Patient appears in no apparent distress at this time. Patient and/or pf1 family updated on plan of care and expected duration. Pain level reassessed. Patient is alert, oriented x 3, equal unlabored respirations, skin warm/dry/pink. Patient states feeling better. Patient states symptoms have improved. Vital Signs: 10/31 22:03 BP 123 / 81; Pulse 92; Resp 17 S; Temp 99.1(O); Pulse Ox 99% on R/A; Weight 61.23 kg lg3 (R); Height 5 ft. 3 in. (R); Pain 7/10; 11/01 01:00 BP 130 / 73; Pulse 72; Resp 18; Pulse Ox 99% on R/A; pf1 04:14 BP 112 / 71; Pulse 68; Resp 18; Pulse Ox 97% on R/A; oe 10/31 22:03 Body Mass Index 23.91 (61.23 kg, 160.02 cm) lg3 10/31 22:03 Pain Scale: Adult lg3 ED Course: 10/31 21:34 Patient arrived in ED. jj6 21:38 Ruiz Kitchen PA is PHCP. cp 21:39 Yonny Rodriguez MD is Attending Physician. cp 22:05 Triage completed. lg3 22:05 Arm band placed on right wrist. lg3 23:49 XRAY Chest (1 view) In Process Unspecified. EDMS 11/01 00:00 Patient has correct armband on for positive identification. Bed in low position. Call pf1 light in reach. 00:12 Initial lab(s) drawn, by me, sent to lab. Urine collected: clean catch specimen, jw7 cloudy, EKG done, by ED staff, reviewed by Ruiz REN. Inserted saline lock: 20 gauge in right antecubital area, using aseptic technique. Blood collected. 02:57 CT Chest For PE Angio In Process Unspecified. EDMS 02:57 CT Abd/Pelvis - IV Contrast Only In Process Unspecified. EDMS 04:50 No provider procedures requiring assistance completed. IV discontinued, intact, pf1 bleeding controlled, No redness/swelling at site. Pressure dressing applied. Administered Medications: 00:07 Drug: morphine IVP or IV 2 mg Route: IVP; Infused Over: 4 mins; Site: right forearm; cg 01:00 Follow up: Response: No adverse reaction; Marked relief of symptoms; Pain is decreased; pf1 RASS: Alert and Calm (0) 04:38 Drug: Rocephin IV 1 grams Route: IV; Rate: calculated rate; Site: right forearm; pf1 04:50 Follow up: Response: No adverse reaction; Marked relief of symptoms; IV Status: pf1 Completed infusion; IV Intake: 10ml 04:38 Drug: AZITHromycin PO 500 mg Route: PO; pf1 04:50 Follow up: Response: No adverse reaction; Marked relief of symptoms pf1 Medication: 04:50 VIS not applicable for this client. pf1 Intake: 04:50 IV: 10ml; Total: 10ml. pf1 Outcome: 04:29 Discharge ordered by . cp 04:50 Discharged to home ambulatory. pf1 04:50 Condition: improved pf1 04:50 Discharge instructions given to patient, Instructed on discharge instructions, follow up and referral plans. Demonstrated understanding of instructions, follow-up care, medications, Prescriptions given X 3. 05:23 Patient left the ED. pf1 Signatures: Dispatcher [employer] EDMS Ruiz Kitchen PA PA cp Garcia, Cindy, RN RN Edu Obrien Lacie, RN RN lg3 Peri Horowitz6 Kailee Leblanc jw7 Milena Julian RN RN pf1 Corrections: (The following items were deleted from the chart) 10/31 22:09 22:03 Chief complaint: Patient states: left sided rib and back pain X5 days lg3 lg3 11/01 05:23 05:21 Respiratory: Respiratory effort is pf1 pf1 06:39 06:36 General: Appears pf1 pf1
--- NOTE | 2022-11-01 04:29 | EDPHYS ---
Physician Documentation [facility] Name: Kaia Feng Age: 42 yrs Sex: Female : 1980 Arrival Date: 10/31/2022 Time: 21:31 Bed 11 Private MD: ED Physician Yonny Rodriguez HPI: 10/31 23:40 This 42 yrs old Female presents to ER via Ambulatory with complaints of Shortness Of cp Breath, Chest Wall Pain. 23:40 The patient or guardian reports chest pain that is located primarily in the anterior cp chest wall, left. Onset: 5 day(s) ago. The patient presents with pain that is acute, with no known mechanism of injury. The symptoms are located in the left scapular area and left subscapular area. Onset: The symptoms/episode began/occurred 5 day(s) ago. 23:40 Associated signs and symptoms: Pertinent positives: shortness of breath, Pertinent cp negatives: abdominal pain, fever, vomiting, weakness. The problem was sustained from unknown cause. Patient reports history of breast cancer that has spread to lymph nodes. Not currently receiving treatment. 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 - Social history:: Smoking status: Patient reports the use of cigarette tobacco products, smokes one-half pack cigarettes per day, Patient/guardian denies using alcohol, street drugs. ROS: 23:45 Constitutional: Negative for body aches, chills, fever, poor PO intake. cp 23:45 Eyes: Negative for injury, pain, redness, and discharge. cp 23:45 ENT: Negative for drainage from ear(s), ear pain, sore throat, difficulty swallowing, difficulty handling secretions. 23:45 Cardiovascular: Positive for chest pain, of the left side of chest, Negative for edema, palpitations. 23:45 Respiratory: Positive for shortness of breath, Negative for cough, wheezing. 23:45 Abdomen/GI: Negative for abdominal pain, vomiting, diarrhea, constipation. 23:45 Back: Positive for pain at rest, pain with movement, of the left scapular area and left subscapular area, Negative for injury or acute deformity, decreased range of motion. 23:45 Neuro: Negative for altered mental status, dizziness, headache, weakness. 23:45 All other systems are negative. Exam: 23:50 Constitutional: This is a well developed, well nourished patient who is awake, alert, cp and in no acute distress. Head/Face: Normocephalic, atraumatic. 23:50 Eyes: Periorbital structures: appear normal, Conjunctiva: normal, no exudate, no cp injection, Sclera: no appreciated abnormality, Lids and lashes: appear normal, bilaterally. 23:50 ENT: External ear(s): are unremarkable, Nose: is normal, Mouth: Lips: moist, Oral mucosa: pink and intact, moist, Posterior pharynx: is normal, airway is patent, no erythema, no exudate. 23:50 Neck: ROM/movement: is normal, is supple, without pain, no range of motions limitations. 23:50 Chest/axilla: Inspection: normal, Palpation: is normal, no crepitus, no tenderness. 23:50 Cardiovascular: Rate: normal, Rhythm: regular, Edema: is not appreciated, JVD: is not appreciated. 23:50 Respiratory: the patient does not display signs of respiratory distress, Respirations: normal, no use of accessory muscles, no retractions, labored breathing, is not present, Breath sounds: are clear throughout, no decreased breath sounds, no stridor, no wheezing. 23:50 Abdomen/GI: Inspection: abdomen appears normal, Palpation: soft, in all quadrants, nontender, in all quadrants. 23:50 Back: pain, that is moderate, of the left scapular area and left subscapular area, ROM is normal. 23:50 Skin: cellulitis, is not appreciated, no rash present. 23:50 Neuro: Orientation: to person, place \T\ time. Mentation: is normal, Motor: moves all fours, strength is normal, Sensation: is normal. 23:59 ECG was reviewed by the Attending Physician. cp Vital Signs: 22:03 BP 123 / 81; Pulse 92; Resp 17 S; Temp 99.1(O); Pulse Ox 99% on R/A; Weight 61.23 kg lg3 (R); Height 5 ft. 3 in. (R); Pain 7/10; 11/01 01:00 BP 130 / 73; Pulse 72; Resp 18; Pulse Ox 99% on R/A; pf1 04:14 BP 112 / 71; Pulse 68; Resp 18; Pulse Ox 97% on R/A; oe 10/31 22:03 Body Mass Index 23.91 (61.23 kg, 160.02 cm) lg3 10/31 22:03 Pain Scale: Adult lg3 MDM: 10/31 22:12 Patient medically screened. 11/01 04:28 Data reviewed: vital signs, nurses notes, lab test result(s), EKG, radiologic studies, cp CT scan, plain films. 04:28 Differential diagnosis: acute myocardial infarction, anxiety, chest wall pain, cp pericarditis, pleurisy, pneumonia, pneumothorax, pulmonary embolus. Consideration of Admission/Observation Escalation of care including admission/observation considered. I considered the following discharge prescriptions or medication management in the emergency department Medications were administered in the Emergency Department. See MAR. Care significantly affected by the following chronic conditions: Cancer. 04:28 Counseling: I had a detailed discussion with the patient and/or guardian regarding: the cp historical points, exam findings, and any diagnostic results supporting the discharge/admit diagnosis, lab results, radiology results, the need for outpatient follow up, a family practitioner, to return to the emergency department if symptoms worsen or persist or if there are any questions or concerns that arise at home. 10/31 23:33 Order name: Basic Metabolic Panel; Complete Time: 01:03 cp 11/01 01:03 Interpretation: Normal except: CL 108. 10/31 23:33 Order name: CBC with Diff; Complete Time: 01:03 cp 11/01 01:03 Interpretation: Normal except: WBC 17.90; MCV 100.2; MICHEAL% 79.0; LYM% 14.7; NEUT A 14.1. 10/31 23:33 Order name: LFT's; Complete Time: 01:03 cp 11/01 04:22 Interpretation: Normal except: AST 8; GLOB 4.2; A/G 1.0. cp 10/31 23:33 Order name: Magnesium; Complete Time: 01:03 cp 10/31 23:33 Order name: NT PRO-BNP; Complete Time: 01:03 cp 10/31 23:33 Order name: PT-INR; Complete Time: 01:03 cp 10/31 23:33 Order name: Troponin HS; Complete Time: 01:03 cp 10/31 23:33 Order name: Urinalysis W/Microscopic; Complete Time: 01:03 cp 11/01 01:04 Interpretation: Normal except: [facility] Extremely Turbid; Urine SG > 1.030; UPROT 1+; UNIT cp 2+; UESTR 250; UWBC 20-50; URBC 5-10; UBACT >50; MUCUS 3+; UWBC Clump Occasional. 10/31 23:33 Order name: PREGU; Complete Time: 01:03 cp 11/01 00:33 Order name: Urine Culture EDMS 07 23:33 Order name: XRAY Chest (1 view) 11/01 01:23 Order name: CT Chest For PE Angio 11/01 01:23 Order name: CT Abd/Pelvis - IV Contrast Only cp 10/31 23:33 Order name: EKG; Complete Time: 23:34 cp 10/31 23:33 Order name: Cardiac monitoring; Complete Time: 00:12 cp 10/31 23:33 Order name: EKG - Nurse/Tech; Complete Time: 00:12 cp 10/31 23:33 Order name: IV Saline Lock; Complete Time: 00:12 cp 10/31 23:33 Order name: Labs collected and sent; Complete Time: 00:12 cp 10/31 23:33 Order name: O2 Per Protocol; Complete Time: 00:12 cp 10/31 23:33 Order name: O2 Sat Monitoring; Complete Time: 00:12 cp EC/06 23:59 Rate is 71 beats/min. Rhythm is regular. ND interval is normal. QRS interval is normal. cp QT interval is normal. T waves are Inverted in lead aVR. Interpreted by me. Reviewed by me. Administered Medications: 11/01 00:07 Drug: morphine IVP or IV 2 mg Route: IVP; Infused Over: 4 mins; Site: right forearm; cg 01:00 Follow up: Response: No adverse reaction; Marked relief of symptoms; Pain is decreased; pf1 RASS: Alert and Calm (0) 04:38 Drug: Rocephin IV 1 grams Route: IV; Rate: calculated rate; Site: right forearm; pf1 04:50 Follow up: Response: No adverse reaction; Marked relief of symptoms; IV Status: pf1 Completed infusion; IV Intake: 10ml 04:38 Drug: AZITHromycin PO 500 mg Route: PO; pf1 04:50 Follow up: Response: No adverse reaction; Marked relief of symptoms pf1 Disposition: 07:27 Co-signature as Attending Physician, Yonny Rodriguez MD I agree with the assessment sp4 and plan of care. I reviewed the patient's care provided by the Advanced Practice Provider and agree with the diagnosis and treatment plan. Disposition Summary: 11/01/22 04:29 Discharge Ordered Location: Home cp Problem: new cp Symptoms: have improved cp Condition: Stable cp Diagnosis - Pneumonia, unspecified organism cp - UTI/ Urinary tract infection, site not specified cp - Fracture of one rib, left side cp Followup: cp - With: Private Physician - When: 2 - 3 days - Reason: Recheck today's complaints Discharge Instructions: - Discharge Summary Sheet cp - Community-Acquired Pneumonia, Adult cp - Rib Fracture cp - Urinary Tract Infection, Adult cp Forms: - Medication Reconciliation Form cp - Thank You Letter cp - Antibiotic Education cp - Prescription Opioid Use cp - [email or web address] cp Prescriptions: - Ibuprofen 600 mg Oral Tablet - take 1 tablet by ORAL route every 8 hours As needed take with food; 30 tablet; cp Refills: 0, Product Selection Permitted - Zithromax Z-Sergo 250 mg Oral Tablet - take 1 tablet by ORAL route as directed for 5 days Day 1 - take two (2) tablets cp one time. Day 2, 3, 4 , 5 take one (1) tablet once daily.; 6 tablet; Refills: 0, Product Selection Permitted - cefpodoxime 200 mg Oral Tablet - take 1 tablet by ORAL route every 12 hours for 10 days with food; 20 tablet; cp Refills: 0, Product Selection Permitted Signatures: Dispatcher [employer] EDMS Ruiz Kitchen PA PA cp Garcia, Cindy, RN RN Lyndsey Pablo RN RN 3 Milena Julian RN RN pf1 Potepalov, Yonny, MD MD sp4
[2022-11-01] MEDS ORDERED: CEFTRIAXONE 1000 MG/VIAL ONE (04:47)
[2022-11-01] MEDS ORDERED: AZITHROMYCIN 250 MG TAB ONE (04:47)
[2022-11-01 05:48] VITALS: TEMP 99.1
[2022-11-01 05:51] VITALS: BP 112/71; O2SAT 97
--- NOTE | 2022-11-01 11:30 | RAD REPORT ---
EXAM DESCRIPTION: CT - Chest For Pe Angio - 11/01/2022 5:37 am CLINICAL HISTORY: Chest pain, hx of breast cx TECHNIQUE: Contiguous axial images obtained through the chest during angiographic phase following th e uneventful administration of IV contrast. Sagittal and coronal reformatted images were provided. 3- D MIP reformatted images were provided. This exam was performed according to our departmental dose-optimization program, which includes autom ated exposure control, adjustment of the mA and/or kV according to patient size and/or use of iterati ve reconstruction technique. COMPARISON: No prior exams provided for comparison. FINDINGS: Diagnostic quality: There is adequate opacification of the pulmonary arterial tree. Lungs: Interstitial changes in the left upper lobe underlying the anterior left chest wall. Multifocal areas of interstitial coarsening and groundglass opacities best seen in the lung bases wit h septal thickening bilaterally. These findings are nonspecific and may be seen with radiation pneumonitis and radiation induced lung disease, given the clinical history. Consider follow-up to assess for the evolution of these findings . There is no evidence of focal consolidation Pleura: No effusion. No pneumothorax. Heart and pericardium: The heart is normal in size. No pericardial effusion. Mediastinum and alton: Nonspecific right hilar and mediastinal nodes. Lower neck and chest wall: Focal thickening along the left chest wall Vessels: No pulmonary arterial filling defects. No thoracic aortic aneurysm. Upper abdomen: Unremarkable Bones: Fracture of the left second rib anteriorly of undetermined age. Thickening of the adjacent lef t anterior chest wall IMPRESSION: 1. No pulmonary embolic disease. 2. Multifocal areas of interstitial coarsening and groundglass opacities best seen in the lung base s with septal thickening bilaterally. These findings are nonspecific and may be seen with radiation p neumonitis and radiation induced lung disease, given the clinical history. Consider follow-up to asse ss for the evolution of these findings. Differential considerations would include pneumonitis of othe r etiologies, mild interstitial pulmonary edema and lymphangitic carcinomatosis.. 3. Fracture of the left second rib anteriorly of undetermined age. Thickening of the adjacent left anterior chest wall, which may represent posttraumatic chest wall contusion/hematoma.. Electronically signed by: Kana Hope MD 11/01/2022 3:46 AM CDT Due to temporary technical issues with the PACS/Fluency reporting system, reports are being signed by the in house radiologists without review as a courtesy to insure prompt reporting. The interpreting radiologist is fully responsible for the content of the report.
--- NOTE | 2022-11-01 12:09 | RAD REPORT ---
EXAM DESCRIPTION: CT - Abdomen Pelvis W Contrast - 11/01/2022 5:35 am CLINICAL HISTORY: Back pain TECHNIQUE: Contiguous axial images obtained through the abdomen and pelvis following the uneventful administration of IV contrast. Coronal and sagittal reformatted images were provided. This exam was performed according to our departmental dose-optimization program, which includes autom ated exposure control, adjustment of the mA and/or kV according to patient size and/or use of iterati ve reconstruction technique. COMPARISON: None available for comparison. FINDINGS: Lung bases: See separate report of CTA of the chest Liver: Unremarkable Gallbladder and biliary system: Unremarkable Pancreas: Unremarkable Spleen: Trace nonspecific perisplenic fluid. Adrenals: Unremarkable Kidneys: Normal renal cortical enhancement. No calculi. No hydronephrosis. GI: No obstruction. No appreciable mucosal thickening. Appendix: No findings to suggest acute appendicitis. Urinary bladder: Unremarkable Reproductive: Status post hysterectomy. Lymph nodes: No pathologically enlarged lymph nodes. Peritoneum: No focal fluid collection. No free air. Vessels: No abdominal aortic aneurysm. Abdominal wall: Unremarkable Bones: Unremarkable IMPRESSION: No evidence of acute intra-abdominal or pelvic pathology. Trace nonspecific perisplenic fluid, may represent sequela from small perisplenic or subcapsular floyd shital. Electronically signed by: Kana Hope MD 11/01/2022 3:26 AM CDT Due to temporary technical issues with the PACS/Fluency reporting system, reports are being signed by the in house radiologists without review as a courtesy to insure prompt reporting. The interpreting radiologist is fully responsible for the content of the report.
--- NOTE | 2022-11-01 15:23 | RAD REPORT ---
EXAM DESCRIPTION: RAD - Chest Single View - 10/31/2022 11:47 pm CLINICAL HISTORY: 42 years, Female, left upper back pain;Chest pain COMPARISON: None. FINDINGS: Single view of the chest was obtained portable. No prior films are available for compariso n. The cardiomediastinal silhouette demonstrate to be unremarkable. The heart is not enlarged. The th oracic aorta is unremarkable. The pulmonary vasculature is normal distribution. Costophrenic angles a re sharp. No areas of consolidation or masses are seen. The rest of the soft tissue and bony stru ctures demonstrate to be unremarkable. IMPRESSION: NO ACUTE CARDIOPULMONARY DISEASE SEEN. Electronically signed by: Johnny Power MD 11/01/2022 12:22 AM CDT Due to temporary technical issues with the PACS/Fluency reporting system, reports are being signed by the in house radiologists without review as a courtesy to insure prompt reporting. The interpreting radiologist is fully responsible for the content of the report.
--- NOTE | 2022-11-02 16:20 | EKG ---
Test Date: 2022-10-31 Test Time: 23:53:26 Field Cane Scale Clerk: NATE MEASUREMENT RESULTS: Intervals: Rate: 71 MI: 150 QRSD: 76 QT: 400 QTc: 434 Gilchrist: P: 71 MI: 150 QRS: 60 T: 67 INTERPRETIVE STATEMENTS: Normal sinus rhythm Septal infarct, age undetermined Abnormal ECG Compared to ECG 08/23/2022 13:50:02 No significant changes Electronically Signed On 11-02-22 16:17:55 CDT by Davey Kevin
== END 2022-11-01 05:23 | disposition home or self-care (01) ==
LOC: ER 21:31
DX: J18.9 Pneumonia, unspecified organism (principal); N39.0 Urinary tract infection, site not specified; S22.32XA Fracture of one rib, left side, initial encounter for closed fracture; F17.210 Nicotine dependence, cigarettes, uncomplicated; F41.9 Anxiety disorder, unspecified; Z85.3 Personal history of malignant neoplasm of breast
CPT/HCPCS: 93005; 87088; 85025; 81001; 87086; 80048; 36415; 83735; 81025; 85610; 80076; 87077; 87186; 84484; 83880; 71275; 74177; 71045; 96375; 96374; 99285; Q9967; J0696

== ENCOUNTER 2022-11-25 10:12 | Day surgery (SDC) | payer OTHER ==
[2022-11-25] MEDS ORDERED: Ringers Lactate 1,000 ML IV ONE ×2 (10:34→13:46)
[2022-11-25 10:43] LABS: Hematocrit 39.2 % (36.0-45.0); Lymphocytes % 22.9 % (15.3-44.8); MCV 101.3 fL (80-100); RBC Red Blood Cell Count 3.87 M/uL (3.86-4.86)
[2022-11-25 11:02] LABS: Potassium 3.6 mEq/L (3.5-5.1)
[2022-11-25] MEDS ORDERED: ROCURONIUM 50 MG/5 ML VIAL IV ONE (11:22)
[2022-11-25] MEDS ORDERED: MIDAZOLAM HCL 2 MG/2 ML INJ ONE (11:22)
[2022-11-25] MEDS ORDERED: FENTANYL CITR 250 MCG/5 ML ONE (11:22)
[2022-11-25] MEDS ORDERED: propofoL 200 MG/20 ML VIAL IV ONE (11:22)
[2022-11-25] MEDS ORDERED: KETAMINE HCL IN 0.9 % NACL 50 MG/5 ML SYRINGE IV ONE (11:22)
[2022-11-25] MEDS ORDERED: dexAMETHasone 10 MG/ML VIAL ONE (11:22)
[2022-11-25 11:23] LABS: White Blood Cell Scan OK (OK)
[2022-11-25 11:24] LABS: Blood Morphology Comment NOT SEEN (NOT SEEN); Platelet Estimate ADEQ
[2022-11-25] MEDS ORDERED: ONDANSETRON 4 MG/2 ML VIAL ONE (11:40)
[2022-11-25] MEDS ORDERED: LIDOCAINE 2% MPF 5 ML VIAL ONE (11:40)
[2022-11-25] MEDS: CEFAZOLIN SODIUM 2 GM/VIAL ONE ×2 (12:00→12:40)
[2022-11-25] MEDS: BUPIVACAINE 0.25% PF 30 ML VIAL ONE ×2 (12:49→13:00)
[2022-11-25] MEDS ORDERED: EPHEDRINE SULF 50 MG/ML VIAL ONE (12:51)
[2022-11-25] MEDS ORDERED: FENTANYL CITR 100 MCG/2 ML ONE (14:15)
--- NOTE | 2022-11-25 14:40 | P.OP ---
Preoperative diagnosis: History of RIGHT Breast Cancer Postoperative diagnosis: History of RIGHT Breast Cancer Primary procedure: Bilateral Skin Sparing Mastectomy Anesthesia: GETA + Local Estimated blood loss: <40cc Specimen: Bilateral Breast Tissue, Additional Right Deep margin Findings: Fibrocystic Breast Tissue Bilaterally Complications: None Drain(s): AJ drain (7cm Flat Bilaterally) Transferred to: Recovery Room Condition: Good
[2022-11-25] MEDS ORDERED: KETOROLAC 30 MG/ML INJ ONE (14:48)
--- NOTE | 2022-11-25 15:26 | OP ---
Date of Procedure: 11/25/2022 Surgeon: Mauricio Cruz MD, Brief History Of Present Illness: The patient is a 42-year-old female, known to me from previous cheli alethea, who presented to me with a history of right breast cancer. She had a lumpectomy and sentinel l ymph node biopsy, which was positive for micrometastasis. 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 I had a conversation with Dr. Leos and Dr. Shabazz, the radiation oncologist theresa stocking options for surgical care going forward and we considered local reexcision with a simple lumpec karen as well as axillary dissection versus mastectomy, plus or minus axillary dissection after extens carmen conversation with both the patient and all providers involved. We had agreed to proceeding with a simple bilateral skin sparing mastectomy with eventual reconstruction [facility]. I did explain to the patient the risks, benefits, and alternatives of the above-stated plan. I agreed to proceed with the procedure as we had agreed upon. I discussed the possibility of recurrenc e without performing an axillary dissection; however, the patient stated that she did not want the po ssibility of lymph node dissection, which included the permanent lymphedema as possibility as well as possibility of injury to the nerves causing winged scapula and so forth related to the axillary diss ection. I told her this is very low risk with respect to the axillary dissection; however, she still was adamant that she did not want an axillary dissection on either side and as such, we agreed to pr oceed with simple skin sparing mastectomies at this point. Preoperative Diagnosis: History of right breast cancer. Postoperative Diagnosis: History of right breast cancer. Procedure Performed: Bilateral skin sparing mastectomy. Anesthesia: General endotracheal plus local with 0.25% Marcaine. Estimated Blood Loss: Less than 40 cc. Specimen: Bilateral breast tissues and additional right deep margin. Findings: Fibrocystic breast tissues bilaterally, scar evident on previous right breast lumpectomy s ite. Drains: 7 mm flat AJ drains were utilized. Complications: None. Disposition: The patient was transferred to the recovery room in good condition. Procedure In Detail: After informed consent was obtained as described above, the patient was prepped and draped in the usual sterile fashion after adequate anesthesia was achieved. I made demarcations at the border of the clavicle, latissimus dorsi and the borders of the sternum as well as the rectus pectoral junction. I then demarcated elliptical incisions in the periareolar region bilaterally enc ompassing the previous excision site on the right. I attempted to keep this equal and of similar siz e, shape and orientation on both breasts with demarcation. At this point, I then dissected down to t he subcutaneous tissues following the elliptical incision in the periareolar fashion with a 10 blade down to subcutaneous tissues using electrocautery to dissect the breast off the skin making a thin to moderate thin flap superior up to the inferior border of the clavicle approximately 2 cm half from t he sternal edge down to the rectus muscle and laterally to the latissimus including the axillary tail . I dissected circumferentially around included the electrocautery dissection initially starting wit h superior flap, then rotating to the medial and inferior flaps, and finally the lateral flap. I too k the prepectoral fascia with the breast tissue and 1 small area of increased density was noted and s ome tissue on the right breast which came loose during the dissection. As such, I sent this an addit ional deep margin. Orientation stitches were placed on the both specimens as short superior and long lateral. I then ligated the breast tissue on the right breast and sent off for pathologic examinati on. I copiously irrigated the breast at this point, achieved hemostasis easily with electrocautery a nd simple [id number] stitch of 1 bleeder at the pectoral muscle near the central portion. At th is point, I placed a 7 mm flat AJ drain through a separate stab incision at the lateral inferior aspe ct of the breast and brought into the field. I secured it with a 3-0 nylon suture at the chest wall. No additional hemostatic maneuvers were required at this point. As such, I closed the breast with multiple layers including a deep dermal 3-0 Vicryl, a superficial dermal 3-0 Vicryl in an interrupted fashion on both of these followed by 4-0 Monocryl in a running fashion and Dermabond placed over top . I then copied the exact same procedure as described on the right for the left. Please include an exact duplicate of the right breast mastectomy on the left. After the breasts were closed bilaterall y, the Dermabond was applied, the skin was allowed to dry, and sterile dressings and fluffs were appl ied. The patient tolerated the procedure well without evidence of complication and transferred to [facility] in good condition. All counts were correct at the end of the case. HEIDE/THEE Voice ID: [id number] Report ID: [id number]
[2022-11-25] MEDS ORDERED: HYDROMORPHONE HCL 1 MG/ML INJ ONE (15:29)
[2022-11-25] MEDS ORDERED: HYDROCODONE/APAP 5/325 MG TAB ONE (16:10)
[2022-11-25 16:38] VITALS: BP 117/70; TEMP 97; O2SAT 95
== END 2022-11-25 16:30 | disposition home or self-care (01) ==
LOC: OR 10:12
PROVIDERS: ATTEND Surgery
PROC: 0HTV0ZZ Resection of Bilateral Breast, Open Approach (ICD-10-PCS; principal; 2022-11-25 12:45)
DX: D05.12 Intraductal carcinoma in situ of left breast (principal); Z85.3 Personal history of malignant neoplasm of breast
CPT/HCPCS: 19303; 85025; 80048; 36415; 84703; 88305; 88307; J2704; J2001; J2250; J3010 ×2; J1100; J1170; J2405; J7120 ×2

== ENCOUNTER 2023-03-07 20:17 | Emergency (ER) | payer OTHER ==
--- OUTSIDE RECORDS SUMMARY | 2023-03-07 20:21 | XMS REPORT | Continuity of Care Document ---
:1980 Author Organization [facility] t Address [address] [place] [address] [address] [place] [address] Care Team Providers Name Role Phone RAEANN SZYMANSKI Attending Clinician Unavailable GEOVANNA Attending Clinician Unavailable DR PRACHI MONTAÑO Attending Clinician Unavailable GEOVANNA Admitting Clinician Unavailable DR PRACHI MONTAÑO Admitting Clinician Unavailable Payers Payer Name Policy Type Policy Number Effective Date Expiration Date S aubrey [place] - [id number] G[place]RETT FROM [facility]: SKYE [id number] 2021 2022 ADVANTAGE (HMO) 00:00:00 00:00:00 [id number] 00:00:00 Problems This patient has no known problems. Allergies, Adverse Reactions, Alerts Allergy Allergy Status Severity Reaction(s) Onset Inactive Treating Comm ents Source Name Type Date Date Clinician SULFA Allergy Active [place] (SULFONA to da MIDE substanc [facility] ANTIBIOT e al ICS) [facility] Out[facility] Social History Smoking Status Start Date Stop Date Source Light Tobacco Smoker [facility] Current every day smoker [facility] (LUF/GIANNA/SA) Medications Ordered Filled Start Stop [...] ONE (1) ONE (1) powder MIX [facility] SCOOP (4 SCOOP (4 ONE (1) Outr [...] al ONE (1) ONE (1) powder MIX [facility] SCOOP (4 SCOOP (4 ONE (1) Outr [...] BREATH. OF BREATH. AND SHORTNESS OF BREATH. azithromyci azithromyci No azithromyc [place] n 250 mg n 250 mg in 250 mg da tablet TAKE tablet TAKE tablet [facility] 2 TABLETS 2 TABLETS TAKE 2 al BY MOUTH ON BY MOUTH ON TABLETS BY Health DAY 1, THEN DAY 1, THEN MOUTH ON Outreac 1 TABLET 1 TABLET DAY 1, h DAILY ON DAILY ON THEN 1 Progr am DAYS 2 TO DAYS 2 TO TABLET 5. 5. DAILY ON DAYS 2 TO 5. cefpodoxime cefpodoxime No cefpodoxim [place] 200 mg 200 mg e 200 mg da tablet TAKE tablet TAKE tablet [facility] ONE (1) ONE (1) TAKE ONE al TABLET(S) TABLET(S) (1) Healt h BY MOUTH BY MOUTH TABLET(S) Ou treac EVERY EVERY BY MOUTH h TWELVE TWELVE EVERY Program HOURS FOR HOURS FOR TWELVE 10 DAYS. 10 DAYS. HOURS FOR 10 DAYS. Cholestyram Cholestyram No Cholestyra [place] ine Light [...] BY MOUTH BY MOUTH BY MOUTH EVERY SIX EVERY SIX EVERY SIX HOURS HOURS HOURS NEEDED FOR NEEDED FOR NEEDED FOR 7 DAYS. 7 DAYS. 7 DAYS. ibuprofen ibuprofen No ibuprofen [place] 600 mg 600 mg 600 mg da tablet TAKE tablet TAKE tablet [facility] ONE (1) ONE (1) TAKE ONE al TABLET(S) TABLET(S) (1) Healt h BY MOUTH BY MOUTH TABLET(S) Ou treac EVERY EIGHT EVERY EIGHT BY MOUTH h HOURS HOURS EVERY Progra m NEEDED FOR NEEDED FOR EIGHT PAIN. PAIN. HOURS NEEDED FOR PAIN. montelukast montelukast No montelukas [place] 10 mg [...] Outreac DAY DAY EVERY DAY h Program Vital Signs Vital Name Observation Time Observation Value Comments Source Height 2022-06-18 00:00:00 62.5 [in_i] [facility] BP Diastolic 2022-06-03 00:00:00 77 mm[Hg] [facility] Height 2022-06-03 00:00:00 62.5 [in_i] [facility] BMI (Body Mass 2022-06-03 00:00:00 26.3 kg/m2 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 BP Systolic 2022-06-03 00:00:00 115 mm[Hg] [facility] Body Weight 2022-06-03 00:00:00 2342 [oz_av] [facility] BP Diastolic 2022-04-10 00:00:00 85 mm[Hg] [facility] Height 2022-04-10 00:00:00 62.5 [in_i] [facility] BMI (Body Mass 2022-04-10 00:00:00 26.5 kg/m2 [place] 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 Muslim Index) [facility] Outreach Program BP Systolic 2022-04-10 00:00:00 130 mm[Hg] [place] [facility] Body Weight 2022-04-10 00:00:00 2358 [oz_av] [place] [facility] BP Diastolic 2022-03-27 00:00:00 81 mm[Hg] [place] [facility] Height 2022-03-27 00:00:00 62.5 [in_i] [place] [facility] 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 00:00:00 26.7 kg/m2 [place] 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 Muslim Index) [facility] Out[facility] BP Systolic 2022-03-27 00:00:00 128 mm[Hg] [place] [facility] Body Weight 2022-03-27 00:00:00 2371 [oz_av] [place] [facility] BP Diastolic 2022-03-07 00:00:00 78 mm[Hg] [place] [facility] Height 2022-03-07 00:00:00 62.5 [in_i] [place] [facility] BMI (Body Mass 2022-03-07 00:00:00 26.5 kg/m2 [place] 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 Muslim Index) [facility] Outreach Program BP Systolic 2022-03-07 00:00:00 129 mm[Hg] [place] [facility] Body Weight 2022-03-07 00:00:00 147.2 [lb_av] [place] [facility] BP Diastolic 2022-02-18 00:00:00 86 mm[Hg] [place] [facility] Height 2022-02-18 00:00:00 62.5 [in_i] [place] [facility] BMI (Body Mass 2022-02-18 00:00:00 27.5 kg/m2 [place] 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 Muslim Index) [facility] Outreach Program BP Systolic 2022-02-18 00:00:00 122 mm[Hg] [place] [facility] Body Weight 2022-02-18 00:00:00 2448 [oz_av] [place] [facility] Procedures Procedure Date / Time Performing Clinician Source Performed MAMMO, diagnostic, 2022-06-03 00:00:00 [place] [facility] digital, bilateral Health Outrea ch Program US, breast, bilateral 2022-06-03 00:00:00 [place] 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 [facility] US, thyroid 2022-03-27 00:00:00 [place] [facility] MAMMO, screening, 2022-02-18 00:00:00 [facility] [facility] digital, bilateral Health Outrea ch Program Colonoscopy 2018-04-28 00:00:00 [place] Egd 2018-04-28 00:00:00 [place] [facility] Partial Hysterectomy 2011-04-28 00:00:00 [place] [facility] Plan of Care Planned Activity Planned Date Details Comments Source Future Scheduled 2022-07-10 celiac disease [place] Test 00:00:00 comprehensive panel, [facility] serum [code = celiac Outreac h Program disease comprehensive panel, serum] Future Scheduled 2022-07-10 TSH + free T4, serum [place] Test 00:00:00 [code = TSH + free T4, [facility] serum] Outreach Progra m Future Scheduled 2022-07-10 T3, free, serum or [place] Test 00:00:00 plasma [code = T3, [facility] free, serum or plasma] Outre ach Program Future Scheduled 2022-07-10 thyroid peroxidase [place] [...] Facility Department ID 2022-03-05 Inpatient COMPA SZYMANSKI [facility] [id number] [place] 09:30:00 RAEANN De Los [id number] [facility] 2022-11-26 2022-11-26 Liang DAWSON [place] - [id number] [place] 00:00:00 00:00:00 MD Clark: Fredrick hammer 1700 Muslim [facility] Bird HOP - MEHOP susie Mansfielde, [facility] Outre [address] h , Ph. Program (979) -20072022-11-13 2022-11-13 Outpatient AMBREEN_FAR MEHOP MEHOP 121 [id number] [place] 00:00:00 00:00:00 HANA [id number] [facility] 2022-11-13 2022-11-13 Outpatient AMBREEN_FAR MEHOP MEHOP 121 [id number] [place] 00:00:00 00:00:00 HANA 68717 [facility] 2022-08-19 2022-08-19 Outpatient AMBREEN_FAR MEHOP MEHOP 121 132-202 [place] 00:00:00 00:00:00 HANA 47221 [facility] 2022-08-14 2022-08-14 Outpatient AMBREEN_FAR MEHOP MEHOP 121 132-202 [place] 00:00:00 00:00:00 HANA 90909 [facility] 2022-08-13 2022-08-13 Outpatient AMBREEN_FAR MEHOP MEHOP 121 132-202 [place] 00:00:00 00:00:00 HANA 67169 [facility] 2022-08-13 2022-08-13 [facility] [place] - [id number] [place] 00:00:00 00:00:00 MD Clark: Fredrick hammer 1700 Muslim Ep[facility] Bird HOP - MEHOP al [place], [facility] [id number] h , Ph. Program (916) -20072022-08-11 2022-08-11 Outpatient AMBREEN_FAR MEHOP MEHOP 121 132-202 [place] 00:00:00 00:00:00 HANA 29684 [facility] 2022-08-11 2022-08-11 Outpatient AMBREEN_FAR MEHOP MEHOP 121 [id number] [place] 00:00:00 00:00:00 HANA 35004 [facility] 2022-08-05 2022-08-05 Outpatient AMBREEN_FAR MEHOP MEHOP 121 132-202 [place] 00:00:00 00:00:00 HANA 26889 [facility] 2022-07-30 2022-07-30 Outpatient AMBREEN_FAR MEHOP MEHOP 121 132-202 [place] 00:00:00 00:00:00 HANA 02952 [facility] 2022-07-08 2022-07-08 Outpatient AMBREEN_FAR MEHOP MEHOP 121 132-202 [place] 00:00:00 00:00:00 HANA 54955 [facility] 2022-06-25 2022-06-25 Outpatient AMBREEN_FAR MEHOP MEHOP 121 [id number] [place] 00:00:00 00:00:00 HANA 16466 [facility] 2022-06-18 2022-06-18 Outpatient AMBREEN_FAR CTHOP [facility] 121 132-202 [place] 00:00:00 00:00:00 HANA 73506 [facility] 2022-06-18 [facility] [place] [facility] [id number] 00:00:00 00:00:00 Fredrick Szymanski MD: [id number] Muslim 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 2022-06-03 2022-06-03 [facility] [place] - [id number] M atagor 00:00:00 00:00:00 Fredrick Szymanski MD: 1700 Muslim [place] [place] Outre [address] h , Ph. Program 2022-06-02 2022-06-02 Outpatient AMBREEN_FAR CTHOP [facility] 121 132-202 [place] 00:00:00 00:00:00 HANA 95858 [facility] 2022-06-02 2022-06-02 Outpatient AMBREEN_FAR MEHOP MEHOP 121 132-202 [place] 00:00:00 00:00:00 HANA 94397 [facility] 2022-05-13 2022-05-13 Outpatient AMBREEN_FAR MEHOP MEHOP 121 [id number] [place] 00:00:00 00:00:00 HANA 47315 [facility] 2022-05-13 2022-05-13 Outpatient AMBREEN_FAR MEHOP MEHOP 121 132-202 [place] 00:00:00 00:00:00 HANA 76403 [facility] 2022-05-13 2022-05-13 Outpatient AMBREEN_FAR MEHOP MEHOP 121 132-202 [place] 00:00:00 00:00:00 HANA 02192 [facility] 2022-05-03 2022-05-03 Outpatient AMBREEN_FAR MEHOP MEHOP 121 132-202 [place] 00:00:00 00:00:00 HANA 18176 [facility] 2022-04-11 2022-04-11 Outpatient AMBREEN_FAR MEHOP MEHOP 121 132-202 [place] 00:00:00 00:00:00 REJIA 01336 [facility] 2022-04-11 2022-04-11 Outpatient AMBREEN_FAR MEHOP MEHOP 121 132-202 [place] 00:00:00 00:00:00 HANA 14156 [facility] 2022-04-11 2022-04-11 [facility] [place] - [id number] [place] 00:00:00 00:00:00 MD Clark: Fredrick hammer 1700 Muslim [facility] Bird [facility] Outre [address] h , Ph. Program (303) --20072022-04-10 2022-04-10 Outpatient AMBREEN_FAR MEHOP MEHOP 121 132-202 [place] 00:00:00 00:00:00 HANA 02651 [facility] 2022-04-10 2022-04-10 Raeann [facility] [place] - [id number] M atagor 00:00:00 00:00:00 Fredrick Szymanski MD: 1700 Muslim [facility] [place] [place] Outreac [address] h , Ph. Program 2022-04-09 2022-04-09 Outpatient AMBREEN_FAR MEHOP MEHOP 121 [id number] [place] 00:00:00 00:00:00 REJIA 72647 [facility] 2022-04-08 2022-04-08 Outpatient AMBREEN_FAR MEHOP MEHOP 121 132-202 [place] 00:00:00 00:00:00 PINEDA 18885 [facility] 2022-04-02 2022-04-02 Outpatient AMBREEN_FAR CTHOP CTHOP 121 132-202 [place] 00:00:00 00:00:00 REJIA 88148 [facility] 2022-04-01 2022-04-01 Outpatient AMBREEN_FAR MEHOP MEHOP 121 132-202 [place] 00:00:00 00:00:00 REJIA 76835 [facility] 2022-03-28 2022-03-28 Outpatient AMBREEN_FAR CTHOP CTHOP 121 132-202 [place] 00:00:00 00:00:00 PINEDA 73524 [facility] 2022-03-28 2022-03-28 [facility] [place] - [id number] [place] 00:00:00 00:00:00 MD Clark: Fredrick hammer 1700 Muslim Ep[facility] Pelon [facility] [address] h , Ph. Program (038) 2022-03-27 2022-03-27 Outpatient AMBREEN_FAR MEHOP MEHOP 121 132-202 [place] 00:00:00 00:00:00 PINEDA 07237 [facility] 2022-03-27 2022-03-27 Raeann [facility] [place] - [id number] M atagor 00:00:00 00:00:00 Fredrick Szymanski MD: 1700 [facility] [place] [address] h , Ph. Program 2022-03-26 2022-03-26 Outpatient AMBREEN_FAR MEHOP MEHOP 121 132-202 [place] 00:00:00 00:00:00 PINEDA 79439 [facility] 2022-03-25 2022-03-25 Outpatient AMBREEN_FAR MEHOP MEHOP 121 132-202 [place] 00:00:00 00:00:00 PINEDA 86683 [facility] 2022-03-18 2022-03-18 Outpatient AMBREEN_FAR MEHOP MEHOP 121 132-202 [place] 00:00:00 00:00:00 PINEDA 67862 [facility] 2022-03-07 2022-03-07 Outpatient AMBREEN_FAR MEHOP MEHOP 121 132-202 [place] 00:00:00 00:00:00 PINEDA 35115 [facility] 2022-03-07 2022-03-07 Liang Adamson [facility] [place] - [id number] [place] 00:00:00 00:00:00 MD Clark: Fredrick hammer 1700 Muslim [facility] [address] h , Ph. Program (979) 2022-03-05 2022-03-05 Outpatient AMBREEN_FAR MEHOP MEHOP 121 132-202 [place] 00:00:00 00:00:00 HANFransisco 60946 [facility] 2022-03-04 2022-03-04 Outpatient AMBREEN_FAR MEHOP MEHOP 121 132-202 [place] 00:00:00 00:00:00 PINEDA 05334 [facility] 2022-02-18 2022-02-18 Outpatient AMBREEN_FAR MEHOP MEHOP 121 [id number] [place] 00:00:00 00:00:00 HANA 11108 [facility] 2022-02-18 2022-02-18 Raeann [facility] [place] - [id number] M atagor 00:00:00 00:00:00 Fredrick Szymanski MD: 1700 Muslim [facility] - [facility] [address], [place] Outre [address] h , Ph. Program 2022-02-17 2022-02-17 Outpatient AMBREEN_FAR MEHOP MEHOP 121 132-202 [place] 00:00:00 00:00:00 REJIA 53397 [facility] 2022-02-08 2022-02-08 Outpatient AMBREEN_FAR MEHOP MEHOP 121 132-202 [place] 00:00:00 00:00:00 REJIA 41037 [facility] 2021-10-18 2021-10-18 LOCALIZD 3 [place], [facility] [id number] 08:24:00 23:59:00 [facility] LUMP TRUNK [address] V/SA) [place] [address] 2021-10-18 2021-10-18 Inpatient [facility] [id number] 00:00:00 00:00:00 [place] [id number] [facility], [id number] Memor ia [id number] V[address]SA) [facility] [place] [address] 2021-10-18 2021-10-18 Inpatient [facility] [id number] [facility] 00:[facility] 00:00:00 [place] [id number] [facility], [id number] Memor ia [id number], V/SA) [place] [address] Results Test Description Test Time Test Comments Results Result [facility] e Comments BREAST ULTRASOUND 2022-08-07 CORE BIOPSY [...] 07/23/2022 ultrasound and 07/23/2022 mammogram - [facility]-. An ultrasound guided biopsy using real-time ultrasound [...] oncologic consultation recommended.Da Carmichael M.D. et/:08/07/2022 07:56:10 Dope Weigh Operator: Keegan Clark , [facility] NETWORKletter sent: Surgical Consult Recommended DIAG MAMM RIGHT 2022-07-31 CAD DIGITAL 11:58:39 Name: Enrico: 1980 Sex: F - DIAG MAMM RIGHT CAD DIGITALUNILATERAL RIGHT DIGITAL DIAGNOSTIC MAMMOGRAM WITH CAD: 07/31/2022LINICAL: Right post clip. Current mammographic images were evaluated by [employer] CAD (computer-aided detection) software. Comparison is made to exam dated 07/23/2022 mammogram - [facility]-. The tissue of right breast [...] the location. Da Carmichael M.D. et/:07/31/2022 11:58:39 Dope Weigh Operator: Blanche Justin , [facility]-GWMammogram BI-RADS: Post-procedure mammogram for marker placement BREAST ULTRASOUND 2022-07-23 BILATERAL 16:29:32 Name: Enrico: 1980 Sex: F - BREAST ULTRASOUND BILATERALCOMPLETE ULTRASOUND OF BOTH BREASTS AND AXILLA: 07/23/2022LINICAL: Right breast lump x 3 months at 4 o'clock, per patient has increase in size. Comparison is made to exam dated 07/23/2022 mammogram - [facility]-. Color flow, real-time, and Doppler [...] reviewed with the patient. Gloria marshall/:07/23/2022 16:29:32 Dope Weigh Operator: Keegan Clark , [facility]-letter sent: BIRADS 4/5 Biopsy Ultrasound BI-RADS: 4 Suspicious for malignancy DIAG MAMM 2022-07-23 BILATERAL HARRY 16:25:52 CAD DIGITAL Name: Enrico : 1980 Sex: F - DIAG MAMM BILATERAL HARRY CAD DIGITALBILATERAL [facility] DIGITAL DIAGNOSTIC MAMMOGRAM 3D/2D WITH CAD: 07/23/2022LINICAL: Right breast lump x 3 months at 4 o'clock. Digital breast tomosynthesis was performed in addition to routine CC and MLO views. Current mammographic images were evaluated by [employer] CAD (computer-aided detection) software. No prior exams [...] with ultrasound is performed and reported separately.Gloria Block M.D. yagunjan/:07/23/2022 16:25:52 Dope Weigh Operator: Peri IRWIN, [facility]-GWMammogram BI-RADS: 0 Incomplete: Additional Imaging [...] (test code = Sars Cov 2) negative [facility] ProgramInfluenza virus A and B and SARS-CoV-2 (COVID-19) and Respiratory syncytial virus RNA panel - Respiratory specimen by JODI with probe [id number] 13:55:08 Test Item Value Reference Range Interpretation Comments Influenza A (test code = Influenza negative A) Influenza B (test code = Influenza negative B) RSV (test code = RSV) negative Sars Cov 2 (test code = Sars Cov 2) negative [facility] ProgramInfluenza virus A and B and SARS-CoV-2 (COVID-19) and Respiratory syncytial virus RNA panel - Respiratory specimen by JODI with probe [id number] 13:55:08 Test Item Value Reference Range Interpretation Comments Influenza A (test code = Influenza negative A) Influenza B (test code = Influenza negative B) RSV (test code = RSV) negative Sars Cov 2 (test code = Sars Cov 2) negative [facility] 2000 panel - Serum or [id number] 00:00:00 Test Item Value Reference Range Interpretation [...] 8.7-10.2 Serum or Plasma (test code = 70835-9) Protein [Mass/volume] in 7.1 g/dL 6.0-8.5 Serum or Plasma (test code = 2885-2) Albumin [Mass/volume] in 4.6 g/dL 3.8-4.8 Serum or Plasma (test code = 1751-7) Globulin [Mass/volume] in 2.5 g/dL 1.5-4.5 Serum by calculation (test code = 51719-3) Albumin/Globulin [Mass Ratio] 1.8 1.2-2.2 in Serum [...] Serum or Plasma (test code = 1742-6) [facility] Auto Differential panel - Blood 2022-03-05 [...] = 706-2) immature cells (test code = jacquard card lacer immature cells) Neutrophils [#/volume] in Blood 4.1 [...] Blood by Automated count (test code = 84909-6) Immature granulocytes 0.0 x10e3/uL 0.0-0.1 [#/volume] in Blood by Automated count (test code = 91923-3) Nucleated erythrocytes/100 jacquard card lacer leukocytes [Ratio] in Blood by Automated count (test code = 01776-5) Morphology [Interpretation] in jacquard card lacer Blood Narrative (test code = 38778-0) [facility] ProgramLipid 1996 panel - Serum or Plasma 2022-03-05 [...] or Plasma by calculation (test code = 91074-0) Cholesterol in LDL [Mass/volume] in 40 mg/dL 0-99 Serum or Plasma by calculation (test code = 69607-5) Laboratory comment [Text] in Report jacquard card lacer Narrative (test code = 69029-6) [facility]vine[facility]em[facility] A1c/Hemoglobin.total in [id number] 00:00:00 Test Item Value Reference Range Interpretation Comments Hemoglobin A1c/Hemoglobin.total in 5.1 % 4.8-5.6 Blood (test code = 4548-4) Glucose mean value [Mass/volume] in 100 mg/dL Blood Estimated from glycated hemoglobin (test code = 37138-8) [facility]vine[facility] [Units/volume] in Serum or Plasma by Detection limit <= 0.005 mIU/[id number] 00:00:00 Test Item Value Reference Range Interpretation Comments Thyrotropin [Units/volume] in 0.354 uIU/mL 0.450-4.500 L Serum or Plasma by Detection limit <= 0.005 mIU/L (test code = 76750-8) Thyroxine (T4) free 1.54 NG/dL 0.82-1.77 [Mass/volume] in Serum or Plasma (test code = 3024-7) [facility] assessment panel, [id number] 00:00:00 Test Item Value Reference Range Interpretation Comments Interpretation and review of laboratory note results (test code = 60235-6) Report (test code = 92223-4) . [facility]vine[facility] metabolic 2000 panel - Serum or [id number] 00:00:00 Test Item Value Reference Range Interpretation [...] Creatinine-based formula (CKD-EPI 2020) (test code = 78221-9) Urea nitrogen/Creatinine 14 9-23 [Mass Ratio] in [...] 8.7-10.2 Serum or Plasma (test code = 26486-8) Protein [Mass/volume] in 7.1 g/dL 6.0-8.5 Serum or Plasma (test code = 2885-2) Albumin [Mass/volume] in 4.6 g/dL 3.8-4.8 Serum or Plasma (test code = 1751-7) Globulin [Mass/volume] in 2.5 g/dL 1.5-4.5 Serum by calculation (test code = 63270-8) Albumin/Globulin [Mass Ratio] 1.8 1.2-2.2 in Serum [...] Serum or Plasma (test code = 1742-6) [facility] W Auto Differential panel - Blood 2022-03-05 [...] = 706-2) immature cells (test code = jacquard card lacer immature cells) Neutrophils [#/volume] in Blood 4.1 [...] Blood by Automated count (test code = 66098-5) Immature granulocytes 0.0 x10e3/uL 0.0-0.1 [#/volume] in Blood by Automated count (test code = 89317-7) Nucleated erythrocytes/100 jacquard card lacer leukocytes [Ratio] in Blood by Automated count (test code = 08845-7) Morphology [Interpretation] in jacquard card lacer Blood Narrative (test code = 12710-7) [facility]vine[facility] 1996 panel - Serum or Plasma 2022-03-05 [...] or Plasma by calculation (test code = 00224-1) Cholesterol in LDL [Mass/volume] in 40 mg/dL 0-99 Serum or Plasma by calculation (test code = 15071-6) Laboratory comment [Text] in Report jacquard card lacer Narrative (test code = 25974-2) [facility]vineHemoglobin A1c/Hemoglobin.total in [id number] 00:00:00 Test Item Value Reference Range Interpretation Comments Hemoglobin A1c/Hemoglobin.total in 5.1 % 4.8-5.6 Blood (test code = 4548-4) Glucose mean value [Mass/volume] in 100 mg/dL Blood Estimated from glycated hemoglobin (test code = 96425-1) [facility]vine[facility]yrotropin [Units/volume] in Serum or Plasma by Detection limit <= 0.005 mIU/[id number] 00:00:00 Test Item Value Reference Range Interpretation Comments Thyrotropin [Units/volume] in 0.354 uIU/mL 0.450-4.500 L Serum or Plasma by Detection limit <= 0.005 mIU/L (test code = 83261-6) Thyroxine (T4) free 1.54 NG/dL 0.82-1.77 [Mass/volume] in Serum or Plasma (test code = 3024-7) [facility]vine[facility] assessment panel, [id number] 00:00:00 Test Item Value Reference Range Interpretation Comments Interpretation and review of laboratory note results (test code = 40652-2) Report (test code = 03383-2) . [facility]vineComprehensive metabolic 2000 panel - Serum or [id number] 00:00:00 Test Item Value Reference Range Interpretation [...] 8.7-10.2 Serum or Plasma (test code = 24545-3) Protein [Mass/volume] in 7.1 g/dL 6.0-8.5 Serum or Plasma (test code = 2885-2) Albumin [Mass/volume] in 4.6 g/dL 3.8-4.8 Serum or Plasma (test code = 1751-7) Globulin [Mass/volume] in 2.5 g/dL 1.5-4.5 Serum by calculation (test code = 41868-1) Albumin/Globulin [Mass Ratio] 1.8 1.2-2.2 in Serum [...] Serum or Plasma (test code = 1742-6) [facility] Auto Differential panel - Blood 2022-03-05 [...] = 706-2) immature cells (test code = jacquard card lacer immature cells) Neutrophils [#/volume] in Blood 4.1 [...] Blood by Automated count (test code = 86062-6) Immature granulocytes 0.0 x10e3/uL 0.0-0.1 [#/volume] in Blood by Automated count (test code = 81615-6) Nucleated erythrocytes/100 jacquard card lacer leukocytes [Ratio] in Blood by Automated count (test code = 20589-3) Morphology [Interpretation] in jacquard card lacer Blood Narrative (test code = 34765-3) [facility] - Serum or Plasma 2022-03-05 [...] or Plasma by calculation (test code = 78439-4) Cholesterol in LDL [Mass/volume] in 40 mg/dL 0-99 Serum or Plasma by calculation (test code = 23185-9) Laboratory comment [Text] in Report jacquard card lacer Narrative (test code = 37812-2) [facility]emoglobin A1c/Hemoglobin.total in [id number] 00:00:00 Test Item Value Reference Range Interpretation Comments Hemoglobin A1c/Hemoglobin.total in 5.1 % 4.8-5.6 Blood (test code = 4548-4) Glucose mean value [Mass/volume] in 100 mg/dL Blood Estimated from glycated hemoglobin (test code = 75822-2) [facility]yrot[facility]in [Units/volume] in Serum or Plasma by Detection limit <= 0.005 mIU/[id number] 00:00:00 Test Item Value Reference Range Interpretation Comments Thyrotropin [Units/volume] in 0.354 uIU/mL 0.450-4.500 L Serum or Plasma by Detection limit <= 0.005 mIU/L (test code = 21764-7) Thyroxine (T4) free 1.54 NG/dL 0.82-1.77 [Mass/volume] in Serum or Plasma (test code = 3024-7) [facility] panel, [id number] 00:00:00 Test Item Value Reference Range Interpretation Comments Interpretation and review of laboratory note results (test code = 40756-7) Report (test code = 86028-8) . [facility]vine[facility] 2000 panel - Serum or [id number] 00:00:00 Test Item Value Reference Range Interpretation Comments Glucose [Mass/volume] in 92 mg/dL 70-99 Serum or Plasma (test code = 2345-7) Urea nitrogen [Mass/volume] 11 mg/dL 6-24 in Serum or Plasma (test code = 3094-0) Creatinine [Mass/volume] in 0.76 mg/dL 0.57-1.00 Serum or Plasma (test code = 2159-0) eGFR (test code = eGFR) 102 mL/min/1.73 >59 Urea nitrogen/Creatinine 14 9-23 [Mass Ratio] in Serum or Plasma (test code = 3097-3) Sodium [Moles/volume] in 141 mmol/L 134-144 Serum or Plasma (test code = 2951-2) Potassium [Moles/volume] in 3.8 mmol/L 3.5-5.2 Serum or Plasma (test code = 2823-3) Chloride [Moles/volume] in 105 mmol/L 96-106 Serum or Plasma (test code = 2074-0) Carbon dioxide, total 24 mmol/L 20-29 [Moles/volume] in Serum or Plasma (test code = 2027-9) Calcium [Mass/volume] in 9.6 mg/dL 8.7-10.2 Serum or Plasma (test code = 15461-9) Protein [Mass/volume] in 7.1 g/dL 6.0-8.5 Serum or Plasma (test code = 2885-2) Albumin [Mass/volume] in 4.6 g/dL 3.8-4.8 Serum or Plasma (test code = 175-7) Globulin [Mass/volume] in 2.5 g/dL 1.5-4.5 Serum by calculation (test code = 48660-1) Albumin/Globulin [Mass Ratio] 1.8 1.2-2.2 in Serum or Plasma (test code = 1759-0) Bilirubin.total [Mass/volume] 0.5 mg/dL 0.0-1.2 in Serum or Plasma (test code = 1974-) Alkaline phosphatase 112 IU/L 44-121 [Enzymatic activity/volume] in Serum or Plasma (test code = 6768-6) Aspartate aminotransferase 19 IU/L 0-40 [Enzymatic activity/volume] in Serum or Plasma (test code = 0-8) Alanine aminotransferase 46 IU/L 0-32 H [Enzymatic activity/volume] in Serum or Plasma (test code = 174-6) [facility] Auto Differential panel - Blood [...] = 706-2) immature cells (test code = jacquard card lacer immature cells) Neutrophils [#/volume] in Blood 4.1 [...] Blood by Automated count (test code = 71147-2) Immature granulocytes 0.0 x10e3/uL 0.0-0.1 [#/volume] in Blood by Automated count (test code = 02024-5) Nucleated erythrocytes/100 jacquard card lacer leukocytes [Ratio] in Blood by Automated count (test code = 07554-6) Morphology [Interpretation] in jacquard card lacer Blood Narrative (test code = 29676-6) [facility] 1996 panel - Serum or Plasma 2022-03-05 [...] or Plasma by calculation (test code = 25337-9) Cholesterol in LDL [Mass/volume] in 40 mg/dL 0-99 Serum or Plasma by calculation (test code = 51344-4) Laboratory comment [Text] in Report jacquard card lacer Narrative (test code = 73505-9) [facility]vineHemoglobin A1c/Hemoglobin.total in [id number] 00:00:00 Test Item Value Reference Range Interpretation Comments Hemoglobin A1c/Hemoglobin.total in 5.1 % 4.8-5.6 Blood (test code = 4548-4) Glucose mean value [Mass/volume] in 100 mg/dL Blood Estimated from glycated hemoglobin (test code = 40847-1) [facility]yrot[facility] [Units/volume] in Serum or Plasma by Detection limit <= 0.005 mIU/[id number] 00:00:00 Test Item Value Reference Range Interpretation Comments Thyrotropin [Units/volume] in 0.354 uIU/mL 0.450-4.500 L Serum or Plasma by Detection limit <= 0.005 mIU/L (test code = 92152-9) Thyroxine (T4) free 1.54 NG/dL 0.82-1.77 [Mass/volume] in Serum or Plasma (test code = 3024-7) [facility] panel, [id number] 00:00:00 Test Item Value Reference Range Interpretation Comments Interpretation and review of laboratory note results (test code = 30257-8) Report (test code = 28604-2) . [facility]vine[facility] EXTREMITY NON VASC-SPECIFIC AREA 2021-10-18 09:55:07 [facility]Name: ENRICO MALIN : 1980 Sex: FProcedure: US EXTREMITY NON VASC-SPECIFIC AREAOrder Date: 10/18/2021 8:00 AMOrdering Provider: KAILEY ANDERSONClinical Indication: [id number]: Mass of trunk, right axillary painComparison: NoneTechnique: Real time ultrasound was utilized for evaluation of the soft tissuesof the right axillary region.Findings:Targeted ultrasound of the right axilla was obtained. There is nolymphadenopathy.No solid or cystic massIMPRESSION:1. Negative targeted ultrasound of the right axilla.This final report was electronically signed by Dr Johnson Peguero MD :49 AMDictated By: JOHNSON PEGUERO.Date: 10/18/2021 09:49STL
[2023-03-07 22:53] LABS: Absolute Lymphocytes (CBC) 1.6 K/uL (0.7-4.9); Hematocrit 42.1 % (36.0-45.0); Lymphocytes % 20.9 % (15.3-44.8); MCV 98.5 fL (80-100); MPV 7.5 fL (7.6-11.3); Platelets 278 thou/uL (152-406); RBC Red Blood Cell Count 4.27 M/uL (3.86-4.86)
[2023-03-07 23:02] LABS: Protime INR 0.92
--- NOTE | 2023-03-07 23:05 | RAD REPORT ---
EXAM DESCRIPTION: RADChest Single View03/07/2023 10:06 pm CLINICAL HISTORY: CHEST PAIN COMPARISON: Chest Single View dated 10/31/2022 TECHNIQUE: Portable AP view of the chest. FINDINGS: The lungs are clear. Stable chronic interstitial changes No pneumothorax or effusion. The cardiomediastinal contours are unremarkable. IMPRESSION: No acute cardiopulmonary process.
[2023-03-08 00:04] LABS: Specific Gravity 1.023 (1.005-1.030)
[2023-03-08 00:06] LABS: Albumin 3.6 g/dL (3.4-5.0); Bilirubin Direct 0.1 mg/dL (0-0.2); Bilirubin Indirect, Calculated 0.3 mg/dL (0.2-0.8); Bilirubin Total 0.4 mg/dL (0.2-1.0); Protein, Total 7.9 g/dL (6.4-8.2); Troponin High Sensitivity 4.3 pg/mL (<58.9)
[2023-03-08 00:09] LABS: Magnesium 2.2 mg/dL (1.6-2.4); Potassium 4.2 mEq/L (3.5-5.1)
[2023-03-08 00:09] LABS: Specific Gravity 1.023 (1.005-1.030); Urine Bacteria None Seen /HPF (<20); Urine Bilirubin NEGATIVE (Negative); Urine Blood Negative (Negative); Urine Clarity Extremely Turbid (Clear); Urine Color Light-Yellow (Yellow); Urine Glucose NEGATIVE (Negative); Urine Mucus Slight /HPF (None Seen); Urine Protein NEGATIVE (Negative); Urine RBC <5 /HPF (None Seen); Urine Urobilinogen Normal (Normal)
[2023-03-08 00:14] LABS: SARS-CoV-2 Antigen Rapid Res Negative (Negative)
--- NOTE | 2023-03-08 02:18 | EDPHYS ---
Physician Documentation [facility] Name: Kaia Feng Age: 43 yrs Sex: Female : 1980 Arrival Date: 03/07/2023 Time: 20:17 Bed 9 Private MD: ED Physician Ban Campbell HPI: 03/07 21:40 This 43 yrs old Female presents to ER via Ambulatory with complaints of Shortness of cp Breath and Body aches. 21:40 The patient has shortness of breath at rest. Onset: The symptoms/episode began/occurred cp gradually. Duration: The symptoms are continuous, and are steadily getting worse. Associated signs and symptoms: Pertinent positives: chest pain, body aches, pain in "bones", Pertinent negatives: productive cough, fever, vomiting. Severity of symptoms: in the emergency department the symptoms are unchanged despite home interventions. Patient reports recently finishing course of radiation last week for breast cancer. Recent bilateral mastectomy surgery in August 2022. No chemo treatment. Historical: - Allergies: 21:36 No Known Allergies; vc1 - PMHx: 21:36 Anxiety; Asthma; breast cancer; vc1 - PSHx: 21:36 hysterectomy; Lumpectomy of breast; masectomy (Lumpectomy of breast); vc1 - Immunization history:: Client reports receiving the Praneeth \\T\\ Praneeth single-dose vaccine. - Social history:: Smoking status: Patient reports the use of cigarette tobacco products, smokes one-half pack cigarettes per day. ROS: 21:45 Constitutional: Positive for body aches, Negative for chills, fever, poor PO intake, cp 21:45 Eyes: Negative for injury, pain, redness, and discharge, cp 21:45 ENT: Negative for drainage from ear(s), ear pain, sore throat, difficulty swallowing, difficulty handling secretions, 21:45 Cardiovascular: Positive for chest pain, Negative for edema, palpitations, 21:45 Respiratory: Positive for shortness of breath, at rest. Negative for wheezing, 21:45 Abdomen/GI: Negative for abdominal pain, vomiting, diarrhea, constipation, 21:45 : Negative for urinary symptoms, 21:45 Neuro: Negative for altered mental status, dizziness, headache, numbness, syncope, weakness, 21:45 All other systems are negative, Exam: 21:50 Constitutional: The patient appears in no acute distress, alert, awake, cp non-diaphoretic, non-toxic, well developed, well nourished, 21:50 Head/Face: Normocephalic, atraumatic. cp 21:50 Eyes: Periorbital structures: appear normal, Conjunctiva: normal, no exudate, no injection, Sclera: no appreciated abnormality, Lids and lashes: appear normal, bilaterally, 21:50 ENT: External ear(s): are unremarkable, Nose: is normal, Mouth: Lips: moist, Oral mucosa: pink and intact, moist, Posterior pharynx: is normal, airway is patent, no erythema, no exudate, 21:50 Neck: ROM/movement: is normal, is supple, without pain, no range of motions limitations, no meningismus, no nuchal rigidity, 21:50 Chest/axilla: Inspection: normal, 21:50 Cardiovascular: Rate: normal, Rhythm: regular, Edema: is not appreciated, JVD: is not appreciated, 21:50 Respiratory: the patient does not display signs of respiratory distress, Respirations: normal, no use of accessory muscles, no retractions, labored breathing, is not present, Breath sounds: are clear throughout, no decreased breath sounds, no stridor, no wheezing, 21:50 Abdomen/GI: Inspection: abdomen appears normal, Palpation: abdomen is soft and non-tender, in all quadrants, 21:50 Back: ROM is normal, 21:50 Neuro: Orientation: to person, place \\T\\ time. Mentation: is normal, Motor: moves all fours, strength is normal, Sensation: is normal, 23:08 ECG was reviewed by the Attending Physician. cp Vital Signs: 21:34 BP 141 / 93; Pulse 78; Resp 18; Temp 98.8; Pulse Ox 98% ; Weight 64.41 kg; Height 5 ft. vc1 3 in. ; Pain 11/04; 03/08 03:22 BP 135 / 80; Pulse 70; Resp 18; Pulse Ox 98% ; vc1 03/07 21:34 Body Mass Index 25.15 (64.41 kg, 160.02 cm) vc1 03/07 21:34 Pain Scale: Adult vc1 MDM: 03/07 21:06 ED course: Patient not in room, left without being seen. ci 22:00 Differential diagnosis: Anemia Bronchitis CHF exacerbation, Chronic Obstructive cp Pulmonary Disease pneumonia, Pneumothorax pulmonary edema, Pulmonary Embolism Sepsis Unstable Angina. 03/08 02:15 Data reviewed: vital signs, nurses notes, lab test result(s), EKG, radiologic studies, cp CT scan, plain films. 02:15 Consideration of Admission/Observation Escalation of care including cp admission/observation considered. I considered the following discharge prescriptions or medication management in the emergency department Medications were administered in the Emergency Department. See MAR. Independent interpretation of the following test(s) in the Emergency Department EKG: See my EKG interpretation above. Care significantly affected by the following chronic conditions: Cancer, asthma. Counseling: I had a detailed discussion with the patient and/or guardian regarding the historical points, exam findings, and any diagnostic results supporting the discharge/admit diagnosis, lab results, radiology results, the need for outpatient follow up, a family practitioner, to return to the emergency department if symptoms worsen or persist or if there are any questions or concerns that arise at home. Response to treatment: the patient's symptoms have mildly improved after treatment, and as a result, I will discharge patient. 03/07 21:34 Order name: Basic Metabolic Panel; Complete Time: 00:14 03/08 00:14 Interpretation: Normal except: CL 109. 03/07 21:34 Order name: CBC with Diff; Complete Time: 23:00 03/07 23:01 Interpretation: Normal except: MPV 7.5. 03/07 21:34 Order name: D-Dimer; Complete Time: 23:02 03/07 21:34 Order name: LFT's; Complete Time: 00:14 03/08 02:09 Interpretation: Normal except: GLOB 4.3; A/G 0.8. 03/07 21:34 Order name: Magnesium; Complete Time: 00:14 03/07 21:34 Order name: NT PRO-BNP; Complete Time: 00:14 03/07 21:34 Order name: PT-INR; Complete Time: 23:02 03/07 21:34 Order name: Troponin HS; Complete Time: 00:14 03/08 02:10 Interpretation: Reviewed. 03/07 23:01 Order name: SARS RAPID; Complete Time: 02:09 03/08 02:09 Interpretation: Reviewed. 03/07 23:01 Order name: Influenza Screen (a \\T\\ B); Complete Time: 02:09 cp 03/08 02:09 Interpretation: Reviewed. 03/07 23:02 Order name: Urinalysis W/Microscopic; Complete Time: 00:14 cp 03/08 02:14 Interpretation: Reviewed. 03/07 23:02 Order name: PREGU; Complete Time: 00:14 03/07 21:34 Order name: XRAY Chest (1 view); Complete Time: 23:44 03/07 23:03 Order name: CT Chest For PE Angio 03/07 21:34 Order name: EKG; Complete Time: 21:34 cp 03/07 21:34 Order name: Cardiac monitoring 03/07 21:34 Order name: EKG - Nurse/Tech 03/07 21:34 Order name: IV Saline Lock; Complete Time: 22:47 03/07 21:34 Order name: Labs collected and sent; Complete Time: 22:47 03/07 21:34 Order name: O2 Per Protocol 03/07 21:34 Order name: O2 Sat Monitoring 03/07 22:58 Order name: Misc. Order; Complete Time: 23:55 vc1 EC/10 23:08 Rate is 67 beats/min. Rhythm is regular. SD interval is normal. QRS interval is normal. cp QT interval is normal. T waves are Inverted in leads III, aVR. Interpreted by me. Reviewed by me. Administered Medications: 03/08 02:13 Drug: NS 0.9% IV 1000 ml IV at 1 bolus Per protocol; 1000 mL bolus Route: IV; Rate: 1 vc1 bolus; Site: right antecubital; 02:14 Drug: Ketorolac IVP 15 mg IVP once Route: IVP; Site: right antecubital; vc1 02:23 Drug: MethylPrednisoLONE IVP 80 mg IVP once Route: IVP; Site: right antecubital; vc1 Disposition Summary: 03/08/23 02:17 Discharge Ordered Notes: Location: Home cp Problem: new cp Symptoms: have improved cp Condition: Stable cp Diagnosis - Shortness of breath cp - Acute pain, not elsewhere classified cp Followup: cp - With: Private Physician - When: 2 - 3 days - Reason: Recheck today's complaints Discharge Instructions: - Discharge Summary Sheet cp - Shortness of Breath, Adult cp - Aspirin and Your Heart cp - Acute Pain, Adult cp Forms: - Medication Reconciliation Form cp - Thank You Letter cp - Antibiotic Education cp - Prescription Opioid Use cp - Patient Portal Instructions cp - Leadership Thank You Letter cp Prescriptions: - albuterol sulfate 90 mcg/actuation Inhalation HFA Aerosol Inhaler - inhale 1 puff INHALATION route every 4 to 6 hours as needed for bronchospasm; cp administer via ventilator; 1 unit; Refills: 0, Product Selection Permitted - Zithromax Z-Sergo 250 mg Oral Tablet - take 1 tablet ORAL route as directed for 5 days Day 1 - take two (2) tablets cp one time. Day 2, 3, 4 , 5 take one (1) tablet once daily.; 6 tablet; Refills: 0, Product Selection Permitted - Medrol (Sergo) 4 mg Oral Tablets, Dose Pack - take 1 tablet ORAL route as directed - follow package instructions; 1 packet; cp Refills: 0, Product Selection Permitted Signatures: Dispatcher [employer] EDMS Ruiz Kitchen PA PA cp Calcote, Vanessa, RN RN vc1 Ban Campbell ci Corrections: (The following items were deleted from the chart) 03/07 21:07 20:28 Patient medically screened. ci ci 03/08 15:40 15:37 This 43 yrs old Female presents to ER via Ambulatory with complaints of Shortness cp of Breath and Body aches. cp
--- NOTE | 2023-03-08 02:18 | ER ---
Nurse's Notes [facility] Name: Kaia Feng Age: 43 yrs Sex: Female : 1980 Arrival Date: 03/07/2023 Time: 20:17 Bed 9 Private MD: Diagnosis: Shortness of breath;Acute pain, not elsewhere classified Presentation: 03/07 21:34 Chief complaint: Patient states: Just finished last round of radiation last Friday for vc1 breast cancer. Now it feels like my bones hurt and its hard to breath. Coronavirus screen: Vaccine status: Patient reports receiving the 1st dose of the Covid vaccine. Client denies travel out of the [place] in the last 14 days. At this time, the client does not indicate any symptoms associated with coronavirus-19. Ebola Screen: Patient negative for fever greater than or equal to 101.5 degrees Fahrenheit, and additional compatible Ebola Virus Disease symptoms Patient denies exposure to infectious person. Patient denies travel to an Ebola-affected area in the 21 days before illness onset. No symptoms or risks identified at this time. Initial Sepsis Screen: Does the patient meet any 2 criteria? No. Patient's initial sepsis screen is negative. Does the patient have a suspected source of infection? No. Patient's initial sepsis screen is negative. Risk Assessment: Do you want to hurt yourself or someone else? Patient reports no desire to harm self or others. Onset of symptoms was March 03, 2023. 21:34 Method Of Arrival: Ambulatory vc1 21:34 Acuity: LUCIANO 3 vc1 Triage Assessment: 21:37 General: Appears in no apparent distress. uncomfortable, Behavior is calm, cooperative, vc1 appropriate for age. Pain: Complains of pain in whole body Pain does not radiate. Pain currently is 7 out of 10 on a pain scale. EENT: No deficits noted. No signs and/or symptoms were reported regarding the EENT system. Neuro: Level of Consciousness is awake, alert, obeys commands, Oriented to person, place, time, situation, Appropriate for age. Cardiovascular: No deficits noted. Respiratory: Reports shortness of breath Airway is patent Respiratory effort is even, unlabored, Respiratory pattern is regular, symmetrical. GI: No deficits noted. No signs and/or symptoms were reported involving the gastrointestinal system. : No deficits noted. No signs and/or symptoms were reported regarding the genitourinary system. Derm: No deficits noted. No signs and/or symptoms reported regarding the dermatologic system. Musculoskeletal: Reports pain in whole body. Historical: - Allergies: 21:36 No Known Allergies; vc1 - PMHx: 21:36 Anxiety; Asthma; breast cancer; vc1 - PSHx: 21:36 hysterectomy; Lumpectomy of breast; masectomy (Lumpectomy of breast); vc1 - Immunization history:: Client reports receiving the Praneeth \T\ Praneeth single-dose vaccine. - Social history:: Smoking status: Patient reports the use of cigarette tobacco products, smokes one-half pack cigarettes per day. Screenin/11 03:22 [facility] ED Fall Risk Assessment (Adult) History of falling in the last 3 months, vc1 including since admission No falls in past 3 months (0 pts) Confusion or Disorientation No (0 pts) Intoxicated or Sedated No (0 pts) Impaired Gait No (0 pts) Mobility Assist Device Used No (0 pt) Altered Elimination No (0 pt) Score/Fall Risk Level 0 - 2 = Low Risk Oriented to surroundings, Maintained a safe environment, Educated pt \T\ family on fall prevention, incl call for assistance when getting out of bed. Abuse screen: Denies threats or abuse. Nutritional screening: No deficits noted. Tuberculosis screening: No symptoms or risk factors identified. Assessment: 03:24 Reassessment: Patient and/or family updated on plan of care and expected duration. Pain vc1 level reassessed. Patient is alert, oriented x 3, equal unlabored respirations, skin warm/dry/pink. Patient states feeling better. Patient states symptoms have improved. Vital Signs: 03/07 21:34 BP 141 / 93; Pulse 78; Resp 18; Temp 98.8; Pulse Ox 98% ; Weight 64.41 kg; Height 5 ft. vc1 3 in. ; Pain 11/04; 03/08 03:22 BP 135 / 80; Pulse 70; Resp 18; Pulse Ox 98% ; vc1 03/07 21:34 Body Mass Index 25.15 (64.41 kg, 160.02 cm) vc1 03/07 21:34 Pain Scale: Adult vc1 ED Course: 03/07 20:26 Patient arrived in ED. wm 20:28 Ban Campbell is Attending Physician. ci 20:37 Gabriel Sharpe, RN is Primary Nurse. rv 20:40 Triage completed. rv 21:33 Ruiz Kitchen PA is PHCP. cp 21:37 Arm band placed on right wrist. vc1 22:08 XRAY Chest (1 view) In Process Unspecified. EDMS 22:47 Inserted saline lock: 20 gauge in right antecubital area, using aseptic technique. as6 Blood collected. 23:24 Basic Metabolic Panel Sent. wm 23:24 LFT's Sent. wm 23:24 Magnesium Sent. wm 23:24 NT PRO-BNP Sent. wm 23:24 Troponin HS Sent. wm 23:55 PREGU Sent. wm 23:55 Urinalysis W/Microscopic Sent. wm 23:55 Influenza Screen (a \T\ B) Sent. wm 23:55 SARS RAPID Sent. wm 03/08 00:57 CT Chest For PE Angio In Process Unspecified. EDMS 03:23 No provider procedures requiring assistance completed. IV discontinued, intact, vc1 bleeding controlled, No redness/swelling at site. Pressure dressing applied. Administered Medications: 02:13 Drug: NS 0.9% IV 1000 ml IV at 1 bolus Per protocol; 1000 mL bolus Route: IV; Rate: 1 vc1 bolus; Site: right antecubital; 02:14 Drug: Ketorolac IVP 15 mg IVP once Route: IVP; Site: right antecubital; vc1 02:23 Drug: MethylPrednisoLONE IVP 80 mg IVP once Route: IVP; Site: right antecubital; vc1 Medication: 03:24 VIS not applicable for this client. vc1 Outcome: 02:17 Discharge ordered by MD. cp 03:23 Discharged to home ambulatory, vc1 03:23 Condition: good 03:23 Discharge instructions given to patient, Instructed on discharge instructions, follow up and referral plans. medication usage, Demonstrated understanding of instructions, follow-up care, medications, Prescriptions given X 2, 03:24 Patient left the ED. vc1 Signatures: Dispatcher [employer] EDSC Ruiz Kitchen PA PA cp Vicente, Ronaldo, RN RUT rv Kelsey Blackburn Roge Gold RN RN as6 Lo Oakes RN RN vc1 Ban Campbell ci Corrections: (The following items were deleted from the chart) 03/07 20:41 20:37 Coronavirus screen: At this time, the client does not indicate any symptoms rv associated with coronavirus-19. rv : 20:37 Ebola Screen: No symptoms or risks identified at this time. rv rv : 20:37 Chief complaint: EMS states: PT HAS BEEN SICK FOR 2 DAYS, MISSED DIALYSIS TODAY, rv HYPOGLYCEMIA WITH BGL OF 47 IN THE NSG HOME, GIVEN ORAL GLUCOSE, HYPERTENSIVE AND IS ALTERED, AND IS FEBRILE. rv : 20:37 Initial Sepsis Screen: Does the patient meet any 2 criteria? No. Patient's rv initial sepsis screen is negative. Does the patient have a suspected source of infection? No. Patient's initial sepsis screen is negative. rv : 20:37 Risk Assessment: Do you want to hurt yourself or someone else? Patient reports no rv desire to harm self or others. rv : 20:37 Onset of symptoms was March 07, 2023 rv rv : 20:37 Method Of Arrival: EMS: [facility] rv rv 20:41 20:37 BP 210 / 107; Pulse 90bpm; Resp 19bpm; Pulse Ox 99% 2 lpm Nasal Cannula; Temp rv 100F; rv 20:41 20:37 Acuity: LUCIANO 2 rv rv
[2023-03-08] MEDS ORDERED: KETOROLAC 30 MG/ML INJ ONE (02:19)
[2023-03-08] MEDS ORDERED: NA CHLORIDE 0.9% 1,000 ML ONE (02:19)
[2023-03-08] MEDS ORDERED: METHYLPREDNISOLONE 40 MG INJ ONE (02:29)
[2023-03-08 03:39] VITALS: TEMP 98.8; O2SAT 98
[2023-03-08 03:45] VITALS: BP 135/80
--- NOTE | 2023-03-08 17:11 | RAD REPORT ---
EXAM DESCRIPTION: CT - Chest For Pe Angio - 03/08/2023 6:08 am CLINICAL HISTORY: 43 years, Female, Chest pain;SOB COMPARISON: 11/01/2022. TECHNIQUE: Multiple transaxial tomograms of the chest were obtained from the lung apices through the lung bases utilizing 2 mm slice thickness at 2 mm interval reconstruction after the administration o f large bolus of IV contrast for complete opacification of the pulmonary arteries. Subsequent to 2-D and 3-D multiplanar reformats and maximum intensity projection images were generated in the sagittal and coronal planes. An individualized dose optimization technique, Automated Exposure Control, was utilized for the perfo rmed procedure. FINDINGS: CTA: The pulmonary arteries are adequately opacified. No evidence of pulmonary emboli or right heart strain. No acute finding in the thoracic aorta. Lungs: The lung parenchyma demonstrate minimal haziness throughout the lungs slightly more pronounced within the right posterior CP angle, findings are less pronounced when compared to prior study, perh aps corresponding to minimal focal area of scarring and/or air trapping. No definitive significant in terlobular and/or intralobular septa thickening that would suggest interstitial lung disease. No sign ificant pulmonary nodules, masses and/or consolidations. Airways: The trachea mainstem bronchus demonstrate to be unremarkable. Pleura: No significant pleural effusions. Mediastinum and alton: There is no significant mediastinal and/or hilar lymphadenopathy. The axillary regions demonstrate to be clear. Heart and pericardium: The heart is normal in size. No significant pericardial effusion Vessels: Coronary: No significant coronary artery calcifications. Aorta: The thoracic aorta demonstrate to be within normal limits. No evidence for aneurysm. Other: There is no significant filling defects within the pulmonary arteries to suggest pulmonary embolus. Chest wall: The chest wall demonstrate to be within normal limits. Neck base: No significant finding. Osseous: The bone windows demonstrate to be within normal limits. No evidence for compression deformi ties and/or significant skeletal lesions. Incidental findings: None Visualized upper abdomen: The visualized portions of the upper abdomen demonstrate to be unremarkable . IMPRESSION: No evidence of pulmonary embolus and/or thoracic aortic aneurysm. Minimal haziness throughout the lungs slightly more pronounced within the right posterior CP angle, f indings are less pronounced when compared to prior study, perhaps corresponding to minimal focal area of scarring and/or air trapping. No definitive evidence for interstitial lung disease. Electronically signed by: Johnny Power MD 03/08/2023 01:50 AM [employer] Due to temporary technical issues with the PACS/Fluency reporting system, reports are being signed by the in house radiologists without review as a courtesy to insure prompt reporting. The interpreting radiologist is fully responsible for the content of the report.
--- NOTE | 2023-03-12 17:38 | EKG ---
Test Date: 2023-03-07 Test Time: 23:01:59 Announcer: JAIME MEASUREMENT RESULTS: Intervals: Rate: 67 NJ: 146 QRSD: 78 QT: 412 QTc: 435 [place]: P: 46 NJ: 146 QRS: 57 T: 21 INTERPRETIVE STATEMENTS: Normal sinus rhythm Septal infarct, age undetermined Abnormal ECG Compared to ECG 10/31/2022 23:53:26 No significant changes Electronically Signed On 03-12-23 17:26:33 RECRUITER by Davey Kevin
== END 2023-03-08 03:24 | disposition home or self-care (01) ==
LOC: ER 20:17
DX: R06.02 Shortness of breath (principal); R52 Pain, unspecified; Z72.0 Tobacco use; Z85.3 Personal history of malignant neoplasm of breast; Z20.822 Contact with and (suspected) exposure to COVID-19; Z11.52 Encounter for screening for COVID-19
CPT/HCPCS: 93005; 85025; 81001; 80048; 36415; 83735; 81025; 85610; 85379; 80076; 84484; 83880; 87804 ×2; 71275; 71045; 96375; 96374; 99284; 87811; Q9967; J7030; J2920